=== PATIENT | male | born 1950 | race Caucasian/White ===

== ENCOUNTER → 2019-11-21 13:16 | Outpatient (BNVA) | payer OTHER, SELFPAY | PROVIDERS: Family Provider Internal Medicine; PCP Internal Medicine; Visit Provider Nurse Practitioner | DX: M51.16 Intervertebral disc disorders with radiculopathy, lumbar region (principal); M46.1 Sacroiliitis, not elsewhere classified; M79.651 Pain in right thigh; G62.9 Polyneuropathy, unspecified; Z79.891 Long term (current) use of opiate analgesic | CPT/HCPCS: 99214 ==

== ENCOUNTER → 2020-01-15 10:21 | Outpatient (BNVA) | payer OTHER, SELFPAY | PROVIDERS: Family Provider Internal Medicine; PCP Internal Medicine; Visit Provider Nurse Practitioner | DX: M54.5 Low back pain (principal); M25.512 Pain in left shoulder; Z79.891 Long term (current) use of opiate analgesic | CPT/HCPCS: 99213; 99214 ==

== ENCOUNTER → 2020-04-28 09:17 | Outpatient (BNVA) | payer OTHER, SELFPAY | PROVIDERS: Family Provider Internal Medicine; PCP Family Medicine; Visit Provider Anesthesiology | DX: M51.16 Intervertebral disc disorders with radiculopathy, lumbar region (principal); M46.1 Sacroiliitis, not elsewhere classified; G62.9 Polyneuropathy, unspecified; Z79.891 Long term (current) use of opiate analgesic | CPT/HCPCS: 99213; 99214 ==

== ENCOUNTER → 2020-07-10 12:36 | Outpatient (BNVA) | payer OTHER, SELFPAY | PROVIDERS: Family Provider Internal Medicine; PCP Family Medicine; Visit Provider Anesthesiology | DX: M51.16 Intervertebral disc disorders with radiculopathy, lumbar region (principal); M54.9 Dorsalgia, unspecified; M46.1 Sacroiliitis, not elsewhere classified; G62.9 Polyneuropathy, unspecified; Z79.891 Long term (current) use of opiate analgesic | CPT/HCPCS: 99213; 99214 ==

== ENCOUNTER → 2020-09-18 09:21 | Outpatient (BNVA) | payer OTHER, SELFPAY | PROVIDERS: Family Provider Internal Medicine; PCP Family Medicine; Visit Provider Anesthesiology | DX: M54.9 Dorsalgia, unspecified (principal); M51.16 Intervertebral disc disorders with radiculopathy, lumbar region; G62.9 Polyneuropathy, unspecified; Z79.891 Long term (current) use of opiate analgesic | CPT/HCPCS: 99213; 99214 ==

== ENCOUNTER → 2020-11-03 10:07 | Outpatient (BNVA) | payer OTHER, SELFPAY | PROVIDERS: Family Provider Internal Medicine; PCP Family Medicine; Visit Provider Nurse Practitioner | DX: M51.16 Intervertebral disc disorders with radiculopathy, lumbar region (principal); M54.9 Dorsalgia, unspecified; M46.1 Sacroiliitis, not elsewhere classified; G62.9 Polyneuropathy, unspecified; Z79.891 Long term (current) use of opiate analgesic | CPT/HCPCS: 99213 ==

== ENCOUNTER 2020-11-30 13:56 | Emergency (ER) | payer OTHER, MEDICARE, SELFPAY ==
[2020-11-30 14:39] VITALS: BP 142/81; PULSE 83; RESP 14; TEMP 36.7; O2SAT 99; BMI 41.0
--- NOTE | 2020-11-30 14:54 | CT_ITS ---
WS: [id number] CT HEAD NONCONTRAST HISTORY: stroke like symptoms TECHNIQUE: Contiguous axial imaging performed through the brain in 2.5 mm imaging. Bone and soft tiss ue windows. Sagittal and coronal reformats reviewed. All CT scans at [facility] use at ast one of these dose optimization techniques: automated exposure control; mA and/or kV adjustment pe r patient size (includes targeted exams where dose is matched to clinical indication); or iterative r econstruction. DLP: 902.45 mGy.cm COMPARISON: 04/05/2018 No acute intracranial hemorrhage, midline shift or mass effect. There is mild atrophy and mild chronic microvascular ischemic disease. No prior infarct. Ventricles: Normal size with no hydrocephalus. Paranasal sinuses: As visualized are clear. Mastoid air cells: Increased fluid and soft tissue in the RIGHT mastoid air cells. Similar to the daylin or study. Coalescence of the air cells on the RIGHT. Partial opacification of the RIGHT middle ear is also similar to the prior study. Calvarium and scalp: Skull is intact with no soft tissue edema or swelling. CT/CT head wo con* [id number] IMPRESSION: 1. No acute intracranial hemorrhage or edema. 2. Mild atrophy and mild chronic microvascular ischemic disease is stable. 3. Partial opacification of the RIGHT middle ear and mastoid air cells, unchan ged also.
[2020-11-30 14:59] VITALS: O2SAT 98
--- NOTE | 2020-11-30 15:07 | ECG_ITS ---
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 Measurements Intervals [place] Rate: 78 P: 20 MI: 174 QRS: 64 QRSD: 105 T: 37 QT: 371 QTc: 423 Interpretive Statements SINUS RHYTHM LOW QRS VOLTAGE IN PRECORDIAL LEADS [QRS DEFLECTION < 1.0 mV IN CHEST LEADS] No previous ECG available for comparison Electronically Signed On 11-30-2020 17:05:51 TECHNICAL INSPECTOR by Yemi Singh M.D. [id number]
[2020-11-30 15:40] VITALS: PULSE 76; RESP 16; O2SAT 96
--- NOTE | 2020-11-30 15:43 | ED_ITS ---
HPI - Neuro Symptoms/Deficit General: Chief Complaint: Neuro Symptoms/Deficit Stated Complaint: [facility] referred/ Possible stroke Time Seen by Provider: 11/30/20 15:06 History of Present Illness: HPI Narrative: 70-year-old male comes in 4 days ago he had weakness in his right arm to the point where he could not drink out of a cup he also was unable to swallow he had some weakness on his face. He had some difficulty with balance as well. This all resolved overnight and the following day he was better he remained good through the next several days. He contacted the [place] [facility] this morning to be evaluated and they directed him to the emergency room because of his report of weakness in the right arm 4 days ago. Onset (ago): day(s) (4) Location: dysarthria and right arm History of same: No Severity: mild Quality: weak Relieving factors: none Exacerbating factors: none Context: sudden onset On Anticoagulants: No Associated symptoms: Reports weakness; Deny chest pain, cough, diaphoresis, fevers/chills, headache(s), anorexia, malaise, nausea, seizures, short of breath, syncope, tingling, vertigo or vomiting Treatments Prior to Arrival: none Review of Systems Const: Denies: malaise or diaphoresis ENMT: Denies: throat pain, ear or mastoid pain, nasal discharge or nasal congestion Card: Denies: chest pain or syncope Resp: Denies: dyspnea, productive cough or non-productive cough GI: Denies: nausea or vomiting : Denies: flank pain, dysuria, urinary frequency or urinary urgency Skin/Breast: Denies: rash or pruritus Neuro: Denies: headache(s) or vertigo [facility] ED PFSH: Medical History (Updated 11/30/20 @ 17:47 by Haroon Robles DO) Arthralgia of lumbar spine COVID-19 2019 Encounter for long-term opiate analgesic use History of liver injury RUPTURED LIVER Lumbar disc disease with radiculopathy Neuropathy Opioid contract exists Sacroiliitis Surgical History Hx of arthroscopic knee surgery LEFT 2000 ;RIGHT 02/10 - DENNENY Hx of carpal tunnel repair BILATERAL Hx of parathyroidectomy Hx of tonsillectomy Hx of total knee replacement BILATERALLY Family History Father Cancer LUNG CANCER Mother Diabetes Family/Other Diabetes COUSIN Stroke COUSIN Social History Smoking and tobacco status: former smoker Quit status (tobacco): has quit using tobacco Second hand smoke exposure: No Alcohol intake: never History of recent travel: No NIH stroke score NIHSS: Level Of Consciousness - 1a: 0 Level Of Consciousness Questions - 1b: Both Correct Level Of Consciousness Commands - 1c: Both Correct Best Gaze - 2: Normal Visual Spears - 3: No Visual Loss Facial Palsy - 4: Normal Motor Arm Right - 5: No Drift Motor Arm Left - 5: No Drift Motor Leg Right - 6: No Drift Motor Leg Left - 6: No Drift Limb Ataxia - 7: Absent Sensory - 8: Normal Best Language - 9: No Aphasia Dysarthia - 10: Normal Extinction And Inattention - 11: 0 Score: Total Score: 0 Physical Exam Const: COMMON NORMALS: no acute distress GENERAL APPEARANCE: cooperative and comfortable ORIENTATION/CONSCIOUSNESS: Yes awake, Yes oriented to person, Yes oriented to place and Yes oriented to time HENMT: COMMON NORMALS: normocephalic, atraumatic, hearing grossly normal bilaterally, external ears normal, EAC's normal, TM's normal bilaterally, Normal nasal mucous membranes and turbinates present, moist oral mucous membranes and oropharynx normal HEAD & SCALP: normocephalic and atraumatic NOSE: Normal nasal mucous membranes and turbinates present EXTERNAL EAR: Yes external ears normal EXTERNAL AUDITORY CANAL: EAC's normal TYMPANIC MEMBRANE: TM's normal bilaterally Eye: COMMON NORMALS: Equal, round and reactive pupils present, EOMs intact bilaterally, conjunctivae normal and no scleral icterus CONJUNCTIVA: Yes conjunctivae normal PUPIL: Yes Equal, round and reactive pupils present Neck/C-Spine: COMMON NORMALS: no JVD Resp: COMMON NORMALS: normal respiratory effort, No retractions, No use of accessory muscles and clear to auscultation bilaterally AUSCULTATION: clear to auscultation bilaterally Cardio: COMMON NORMALS: no JVD, regular rate, regular rhythm and No murmurs present (Cardio) RATE: regular rate RHYTHM: regular rhythm GI: COMMON NORMALS: Soft to palpation and No hepatosplenomegaly present AUSCULTATION: Yes normoactive bowel sounds PALPATION: Yes Soft to palpation, No Tenderness to palpation present (GI), No Guarding due to palpation present (GI) and Yes No hepatosplenomegaly present Extremity: COMMON NORMALS: normal to inspection, capillary refill normal, no clubbing, cyanosis or edema, no calf tenderness and no pedal edema Neuro: SENSORIUM/ORIENTATION: Yes oriented to person, Yes oriented to place and Yes oriented to time Skin: COMMON NORMALS: no rashes or lesions noted GENERAL SKIN EXAM: no rashes or lesions noted Course Vital Signs: Vital signs: Vital Signs Temperature 98.1 F 11/30/20 14:39 Pulse Rate 78 11/30/20 18:00 Respiratory Rate 17 11/30/20 18:00 Blood Pressure 127/88 11/30/20 18:00 Pulse Oximetry 97 11/30/20 18:00 MDM - Neuro Symptoms/Deficit MDM Narrative: Medical decision making narrative: No focal neurologic deficits. NIH score is 0. At this point will discharge patient home aspirin 81 mg daily and will set up for MRI Holter monitor carotid and echo. Return if has further problems. Lab Data: Labs: Lab Results 11/30/20 11/30/20 11/30/20 Range/Units 15:32 15:32 15:32 WBC 5.1 (4.0-10.0) 10^3/ uL RBC 4.63 (4.1-5.3) 10^6/u L Hgb 12.7 (11.7-16.6) g/dL Hct 40.1 L (42.0-52.0) % MCV 86.6 (80-94) fL MCH 27.4 L (28.0-34.0) pg MCHC 31.7 (30.0-36.0) g/dL RDW 14.5 (12.1-15.1) % Plt Count 218 (130-400) 10^3/c mm MPV 9.7 (7.4-10.4) fL Neut % (Auto) 60.4 % Lymph % (Auto) 32.0 % [place] % (Auto) 4.9 % Eos % (Auto) 1.9 % Baso % (Auto) 0.6 % Neut # (Auto) 3.10 (1.8-7.7) 10^3/u L Lymph # (Auto) 1.6 (0.8-4.8) 10^3/u L [place] # (Auto) 0.3 (0.2-0.9) 10^3/u L Eos # (Auto) 0.1 (0.0-0.8) 10^3/u L Baso # (Auto) 0.0 (0.0-0.1) 10^3/u L Nucleated RBC % (a uto) 0 % Nucleated RBCs # 0.0 /100WBC PT 12.70 (12.1-14.9) SECO NDS INR 0.93 (0.8-1.2) APTT 29.7 (23.9-36.7) SECO NDS Sodium 140 (136-145) mmol/L Potassium 4.7 (3.5-5.1) mmol/L Chloride 102 (98-107) mmol/L Carbon Dioxide 28 (22-29) mmol/L Anion Gap 14.7 (5-19) BUN 11 (8-23) mg/dL Creatinine 0.7 (0.7-1.2) mg/dL GFR Calculation 112.1 (90-130) mL/min Glucose 187 H (65-115) mg/dL Calculated Osmolal ity 294 (285-295) mOsm/k g Calcium 10.2 (8.5-10.5) mg/dL Total Bilirubin 0.5 (0.15-1.2) mg/dL AST 46 H (0-40) U/L ALT 75 H (0-41) U/L Alkaline Phosphata se 264 H (40-130) IU/L Total Protein 6.6 (6.6-8.7) g/dL Albumin 4.0 (3.5-5.2) g/dL Globulin 2.6 (1.3-4.6) g/dL Urine Color (Yellow) Urine Appearance (CLEAR) Urine pH (5-7) Ur Specific Gravit y (1.005-1.030) Urine Protein (Negative) Urine Glucose (UA) (Normal) Urine Ketones (Negative) Urine Blood (Negative) Urine Nitrate (Negative) Urine Bilirubin (Negative) Urine Urobilinogen (Negative) mg/dL Ur Leukocyte Noreen ase (Negative) Urine Opiates Scre en (Negative) ng/mL Ur Barbiturates Sc reen (Negative) ng/mL Ur Phencyclidine S crn (Negative) ng/mL Ur Amphetamines Sc reen (Negative) ng/mL U Benzodiazepines Scrn (Negative) ng/mL Urine Cocaine Scre en (Negative) ng/mL U Marijuana (THC) Screen (Negative) ng/mL 11/30/20 11/30/20 Range/Units 17:02 17:02 WBC (4.0-10.0) 10^3/ uL RBC (4.1-5.3) 10^6/u L Hgb (11.7-16.6) g/dL Hct (42.0-52.0) % MCV (80-94) fL MCH (28.0-34.0) pg MCHC (30.0-36.0) g/dL RDW (12.1-15.1) % Plt Count (130-400) 10^3/c mm MPV (7.4-10.4) fL Neut % (Auto) % Lymph % (Auto) % [place] % (Auto) % Eos % (Auto) % Baso % (Auto) % Neut # (Auto) (1.8-7.7) 10^3/u L Lymph # (Auto) (0.8-4.8) 10^3/u L [place] # (Auto) (0.2-0.9) 10^3/u L Eos # (Auto) (0.0-0.8) 10^3/u L Baso # (Auto) (0.0-0.1) 10^3/u L Nucleated RBC % (a uto) % Nucleated RBCs # /100WBC PT (12.1-14.9) SECO NDS INR (0.8-1.2) APTT (23.9-36.7) SECO NDS Sodium (136-145) mmol/L Potassium (3.5-5.1) mmol/L Chloride (98-107) mmol/L Carbon Dioxide (22-29) mmol/L Anion Gap (5-19) BUN (8-23) mg/dL Creatinine (0.7-1.2) mg/dL GFR Calculation (90-130) mL/min Glucose (65-115) mg/dL Calculated Osmolal ity (285-295) mOsm/k g Calcium (8.5-10.5) mg/dL Total Bilirubin (0.15-1.2) mg/dL AST (0-40) U/L ALT (0-41) U/L Alkaline Phosphata se (40-130) IU/L Total Protein (6.6-8.7) g/dL Albumin (3.5-5.2) g/dL Globulin (1.3-4.6) g/dL Urine Color Yellow (Yellow) Urine Appearance Clear (CLEAR) Urine pH 6 (5-7) Ur Specific Gravit y 1.015 (1.005-1.030) Urine Protein Neg (Negative) Urine Glucose (UA) Norm (Normal) Urine Ketones Negative (Negative) Urine Blood Neg (Negative) Urine Nitrate Negative (Negative) Urine Bilirubin Neg (Negative) Urine Urobilinogen Norm (Negative) mg/dL Ur Leukocyte Noreen ase Negative (Negative) Urine Opiates Scre en Positive H (Negative) ng/mL Ur Barbiturates Sc reen Negative (Negative) ng/mL Ur Phencyclidine S crn Negative (Negative) ng/mL Ur Amphetamines Sc reen Negative (Negative) ng/mL U Benzodiazepines Scrn Negative (Negative) ng/mL Urine Cocaine Scre en Negative (Negative) ng/mL U Marijuana (THC) Screen Negative (Negative) ng/mL Discharge Plan Discharge Patient Disposition: Home Clinical Impression: Transient cerebral ischemia Condition: Stable Prescriptions: New aspirin 81 mg tablet,delayed release (DR/EC) 81 mg PO DAILY Qty: 30 RF: 0 No Action lisinopril 10 mg tablet 5 mg PO QAM RF: 0 allopurinol 300 mg tablet 300 mg PO QAM RF: 0 aspirin 81 mg tablet,chewable See Rx Instructions .ROUTE .COMPLEX RF: 0 pravastatin 40 mg tablet 20 mg PO QPM RF: 0 metformin 1,000 mg tablet 1,000 mg PO BID RF: 0 glipizide 10 mg tablet 10 mg PO BID RF: 0 tamsulosin 0.4 mg capsule 0.4 mg PO QPM RF: 0 omega 5-fin-kdd-fish oil [Fish Oil] 1,000 mg (120 mg-180 mg) capsule 1 cap PO BID RF: 0 gabapentin 300 mg capsule 900 mg PO TID 30 Days Qty: 270 RF: 1 hydrocodone-acetaminophen 10-325 mg tablet 1 tab PO .5 times a day PRN (Reason: pain) 30 Days Qty: 150 RF: 0 cyclobenzaprine 10 mg tablet 10 mg PO BID PRN (Reason: muscle spasm) 90 Days Qty: 180 RF: 1 diclofenac sodium 1 % Gel 2 g TOPICAL QID PRN (Reason: Pain) RF: 0 Discharge Orders: Discharge ED (Routine); Ordered 11/30/20 Ordered By: Haroon Robles Referrals: Ara Rubio MD [Primary Care Provider] - Discharge Diet: Usual diet Discharge Activity: Increase activity as tolerated Activity Restrictions/Additional Instructions: Case management will call for further testing 24-hour Holter monitor, carotid ultrasound, MRI of the head Coding Level of Care Code ED Control Integration Engineer for Shirleyg Josiah
[2020-11-30 15:44] LABS: Basophils % 0.6 %; Eosinophils # 0.1 10^3/uL (0.0-0.8); Eosinophils % 1.9 %; Hematocrit 40.1 % (42.0-52.0); Hemoglobin 12.7 g/dL (11.7-16.6); Lymphocytes # 1.6 10^3/uL (0.8-4.8); Mean Corpuscular HGB Conc 31.7 g/dL (30.0-36.0); Mean Corpuscular Hemoglobin 27.4 pg (28.0-34.0); Mean Corpuscular Volume 86.6 fL (80-94); Mean Platelet Volume 9.7 fL (7.4-10.4); Monocytes # 0.3 10^3/uL (0.2-0.9); Monocytes % 4.9 %; Neutrophils % 60.4 %; Nucleated Red Blood Cells % 0 %; Platelet Count 218 10^3/cmm (130-400); Red Blood Count 4.63 10^6/uL (4.1-5.3); Red Cell Distribution Width 14.5 % (12.1-15.1); White Blood Count 5.1 10^3/uL (4.0-10.0)
[2020-11-30 16:06] LABS: INR 0.93 (0.8-1.2)
[2020-11-30 16:07] LABS: Partial Thromboplastin Time 29.7 SECONDS (23.9-36.7)
[2020-11-30 16:12] LABS: Alanine Aminotransferase 75 U/L (0-41); Alkaline Phosphatase 264 IU/L (40-130); Anion Gap 14.7 (5-19); Aspartate Amino Transferase 46 U/L (0-40); Blood Urea Nitrogen 11 mg/dL (8-23); Calcium 10.2 mg/dL (8.5-10.5); Carbon Dioxide 28 mmol/L (22-29); Chloride 102 mmol/L (98-107); Globulin 2.6 g/dL (1.3-4.6); Glomerular Filtration Rate 112.1 mL/min (90-130); Glucose 187 mg/dL (65-115); Osmolality Calculated 294 mOsm/kg (285-295); Potassium 4.7 mmol/L (3.5-5.1); Sodium 140 mmol/L (136-145); Total Bilirubin 0.5 mg/dL (0.15-1.2); Total Protein 6.6 g/dL (6.6-8.7)
[2020-11-30 16:45] VITALS: BP 102/70; PULSE 79; RESP 15; O2SAT 91
[2020-11-30 17:07] LABS: Add Urine Microscopic? NO
[2020-11-30 17:19] LABS: Bilirubin Urine Neg (Negative); Blood Urine Neg (Negative); Glucose Urine UA Norm (Normal); Ketones Urine Negative (Negative); Leukocyte Esterase Urine Negative (Negative); Nitrate Urine Negative (Negative); Protein Urine Neg (Negative); Specific Gravity, Urine 1.015 (1.005-1.030); Urine Appearance Clear (CLEAR); Urine Color Yellow (Yellow); Urobilinogen Urine Norm (Negative); pH Urine 6 (5-7)
[2020-11-30 17:28] LABS: Amphetamines Screen Urine Negative (Negative); Barbiturates Screen Urine Negative (Negative); Benzodiazepines Screen Urine Negative (Negative); Cocaine Screen Urine Negative (Negative); Opiate Screen Urine Positive (Negative); PCP Screen Urine Negative (Negative); THC Screen Urine Negative (Negative)
[2020-11-30 18:00] VITALS: BP 127/88; PULSE 78; RESP 17; O2SAT 97
== END 2020-11-30 18:00 | disposition home or self-care (01) ==
PROVIDERS: Emergency Provider Family Medicine; PCP Family Medicine
DX: G45.9 Transient cerebral ischemic attack, unspecified (principal); Z79.82 Long term (current) use of aspirin; Z79.84 Long term (current) use of oral hypoglycemic drugs; Z87.891 Personal history of nicotine dependence; Z79.899 Other long term (current) drug therapy
CPT/HCPCS: 12345; 70450; 80053; 80306; 81003; 85025; 85610; 85730; 93005; 99283; 99284

== ENCOUNTER → 2021-01-19 10:18 | Outpatient (BNVA) | payer OTHER, SELFPAY | PROVIDERS: PCP Family Medicine; Visit Provider Anesthesiology | DX: M51.16 Intervertebral disc disorders with radiculopathy, lumbar region (principal); M54.9 Dorsalgia, unspecified; M46.1 Sacroiliitis, not elsewhere classified; Z79.891 Long term (current) use of opiate analgesic | CPT/HCPCS: 99213 ==

== ENCOUNTER → 2021-03-19 09:12 | Outpatient (BNVA) | payer OTHER, SELFPAY | PROVIDERS: PCP Family Medicine; Visit Provider Anesthesiology | DX: M51.16 Intervertebral disc disorders with radiculopathy, lumbar region (principal); M54.9 Dorsalgia, unspecified; Z79.891 Long term (current) use of opiate analgesic; Z87.891 Personal history of nicotine dependence | CPT/HCPCS: 99213 ==

== ENCOUNTER 2021-04-28 14:33 | Outpatient (CLI) | payer OTHER, SELFPAY ==
--- NOTE | 2021-04-28 15:00 | USCV_ITS ---
Bolivar Martinez Age: 70 Gender: M : 1950 Exam Date: 04/28/2021 14:51 Ordering Phys: Alfreda Manning MD ([email or web address]) Technologist: Ayde Florence Exam Location: [facility] [place] Indication: TIA Risk Factors: Unknown Previous Vascular Surgery: None Right Brachial BP: / Left Brachial BP: / Right Left Velocity (cm/s) Spectral Plaque Velocity (cm/s) Spectral Plaque Syst/Diast Broadening Syst/Diast Broadening 99.20/ 26.35 Prox CCA 116.20/ 38.50 57.30/ 13.40 Mid CCA 117.80/ 42.20 63.60/ 19.70 Distal CCA 94.30 / 23.60 59.60/ 12.00 Prox ICA 87.50 / 19.20 52.30/ 18.00 Mid ICA 58.90 / 21.70 36.70/ 12.80 Distal ICA 65.90 / 20.90 57.50 ECA 111.60 1.04 ICA/CCA 0.74 Antegrade Vertebral Antegrade 30.40/ 12.40 cm/s 22.00/ 6.80 cm/s Tri Subclavian Tri 61.70 57.00 FINDINGS Minimal plaques at the bifurcations bilaterally. Intimal thickening in the common carotid arteries bilaterally. Antegrade flow in the vertebral arteries bilaterally Normal Doppler flow velocities in the external carotid and subclavian arteries bilaterally CONCLUSIONS Minimal plaques at the bifurcations bilaterally, suggesting less than 50% stenosis. Intimal thickening in the common carotid arteries bilaterally. No significant stenosis, based on the above findings. Dr Alfreda Manning MD [facility] (Electronically Signed) Final Date: 29 April 2021 08:46 S
--- NOTE | 2021-04-28 15:45 | USCV_ITS ---
Bolivar Martinez Age: 70 Gender: M : 1950 Exam Date: 04/28/2021 15:11 Ordering Phys: Alfreda Manning MD ([email or web address]) Technologist: Ayde Florence [place] [facility] [place]: TIA BP: / HR: 90 Rhythm: Sinus Technical Quality: Very technically difficult study MEASUREMENTS (Male / Female) Normal Values 2D ECHO LV Diastolic Diameter PLAX 2.1 cm 4.2 - 5.9 / 3.9 - 5.3 cm LV Systolic Diameter PLAX 1.4 cm LV Chamber Size 3.2 cm IVS Diastolic Thickness 1.2 cm 0.6 - 1.0 / 0.6 - 0.9 cm IVS Systolic Thickness 1.1 cm LVPW Diastolic Thickness 1.1 cm 0.6 - 1.0 / 0.6 - 0.9 cm LVPW Systolic Thickness 1.4 cm RV Chamber Size 2.7 cm LVOT Diameter 2.0 cm LV Ejection Fraction 2D Teich 65.3 % LA Diameter 4.1 cm LA Width 3.3 cm LA Height 4.6 cm RA Width 4.1 cm RA Height 4.9 cm M-MODE LV Diastolic Diameter MM 5.6 cm 4.2 - 5.9 / 3.9 - 5.3 cm LV Systolic Diameter MM 3.2 cm LV Ejection Fraction MM Teich 73.0 % IVS Diastolic Thickness MM 1.3 cm 0.6 - 1.0 / 0.6 - 0.9 cm IVS Systolic Thickness MM 2.2 cm LVPW Diastolic Thickness MM 1.1 cm 0.6 - 1.0 / 0.6 - 0.9 cm LVPW Systolic Thickness MM 1.9 cm Aortic Annulus Diameter 3.3 cm LA Ao Ratio MM 1.7 MV E Point Septal Separation 0.5 cm DOPPLER AV Peak Velocity 122.0 cm/s LVOT Peak Velocity 106.0 cm/s AV Area Cont Eq vti 3.5 cm squared AV Area Cont Eq pk 2.8 cm squared MV Area PHT 5.4 cm squared Mitral E to A Ratio 0.9 MV E' Velocity 37.0 cm/s Mitral E to MV E' Ratio 11.1 Mitral E to LV E' Lateral Ratio 11.1 Mitral E to LV E' Septal Ratio 11.1 TR Peak Velocity 100.3 cm/s TR Peak Gradient 4.0 mmHg TR Mean Velocity 61.1 cm/s TR Mean Gradient 1.8 mmHg TR Velocity Time Integral 19.8 cm TV Peak E Velocity 59.0 cm/s Right Atrial Pressure 3.0 mmHg Pulmonary Artery Systolic Pressu 7.0 mmHg PV Peak Velocity 56.0 cm/s RV Acceleration Time 0.2 s RV Ejection Time 0.3 s RV AcT/ET 0.6 FINDINGS Left Ventricle Normal left ventricular size and systolic function, EF 65%. No regional wall motion abnormalities. Technically difficult study because of poor ultrasonic window. Right Ventricle The right ventricle is normal in size and function. Right Atrium The right atrium is normal in size. Left Atrium Normal left atrial size. Mitral Valve No gross abnormalities noted Aortic Valve No gross abnormalities noted Tricuspid Valve Tricuspid valve not well visualized. Pulmonic Valve Pulmonic valve not well visualized. Pericardium Normal pericardium without effusion. Aorta Normal aortic annulus size. CONCLUSIONS Normal left ventricular size and systolic function, EF 65%. No regional wall motion abnormalities. Mitral and aortic valve morphology appears to be within normal limits with no significant stenotic or regurgitant lesions. The right-sided structures could not be visualized well There is no pericardial effusion. Technically difficult study because of poor ultrasonic window. Dr Alfreda Manning MD [facility] (Electronically Signed) Final Date: 29 April 2021 08:52 S
== END 2021-04-28 14:34 | disposition home or self-care (01) ==
LOC: US 14:36
PROVIDERS: PCP Family Medicine; Visit Provider Internal Medicine Cardiovascular Disease
DX: Z86.73 Personal history of transient ischemic attack (TIA), and cerebral infarction without residual deficits (principal); I65.23 Occlusion and stenosis of bilateral carotid arteries
CPT/HCPCS: 93306; 93880

== ENCOUNTER → 2021-06-04 10:03 | Outpatient (BNVA) | payer OTHER, SELFPAY | PROVIDERS: PCP Family Medicine; Visit Provider Anesthesiology | DX: M51.16 Intervertebral disc disorders with radiculopathy, lumbar region (principal); Z79.891 Long term (current) use of opiate analgesic | CPT/HCPCS: 99213 ==

== ENCOUNTER → 2021-06-24 09:05 | Outpatient (BNVA) | payer OTHER, SELFPAY | PROVIDERS: PCP Family Medicine; Referring Provider Family Medicine; Visit Provider Specialist | DX: M19.012 Primary osteoarthritis, left shoulder (principal); M25.512 Pain in left shoulder | CPT/HCPCS: 73030 ==

== ENCOUNTER → 2021-07-28 09:16 | Outpatient (BNVA) | payer OTHER, SELFPAY | PROVIDERS: PCP Family Medicine; Visit Provider Nurse Practitioner | DX: M51.16 Intervertebral disc disorders with radiculopathy, lumbar region (principal); M25.512 Pain in left shoulder; G62.9 Polyneuropathy, unspecified; M46.1 Sacroiliitis, not elsewhere classified; Z79.891 Long term (current) use of opiate analgesic | CPT/HCPCS: 99212; 99213 ==

== ENCOUNTER → 2021-09-24 09:11 | Outpatient (BNVA) | payer OTHER, SELFPAY | PROVIDERS: PCP Family Medicine; Visit Provider Anesthesiology | DX: M51.16 Intervertebral disc disorders with radiculopathy, lumbar region (principal); M46.1 Sacroiliitis, not elsewhere classified; G62.9 Polyneuropathy, unspecified; Z79.891 Long term (current) use of opiate analgesic | CPT/HCPCS: 99213 ==

== ENCOUNTER 2021-12-19 17:20 | Emergency (ER) | payer OTHER, MEDICARE, SELFPAY ==
--- NOTE | 2021-12-19 17:22 | CTR_ITS ---
PROCEDURE INFORMATION: Exam: CT Head Without Contrast Exam date and time: 12/19/2021 5:22 PM Age: 71 years old Clinical indication: Weakness, extremity; Left; Additional info: Left sided weakness TECHNIQUE: Imaging protocol: Computed tomography of the head without contrast. Sagittal and coronal reformatted images were created and reviewed. Radiation optimization: All CT scans at this facility use at least one of these dose optimization techniques: automated exposure control; mA and/or kV adjustment per patient size (includes targeted exams where dose is matched to clinical indication); or iterative reconstruction. COMPARISON: CT head wo con* [id number] 11/30/2020 2:51 PM RADIATION DOSE METRICS: Total DLP (mGy-cm): 734.43 FINDINGS: Brain: No acute intracranial hemorrhage. No acute infarct. No intra-axial or extra-axial masses. Mcwilliams-white matter differentiation is preserved. No cerebral edema. No extra-axial fluid collections. No midline shift. No evidence for Chiari 1 malformation. Stable mild atrophy of the brain parenchyma. Cerebral ventricles: No hydrocephalus. Paranasal sinuses: Visualized paranasal sinuses are clear. Mastoid air cells: Small amount of fluid in the right and left mastoid air cells. Orbital cavity: Globes and lenses, extraocular muscles, and optic nerves are intact bilaterally. No acute intraorbital abnormality. Vasculature: Atherosclerotic changes in the visualized arteries. Bones/joints: Mild right nasal septal deviation. Soft tissues: The extracranial soft tissues are unremarkable. CT/CT head wo con* [id number] IMPRESSION: 1. No acute abnormality of the brain. 2. Stable mild atrophy of the brain parenchyma. 3. Small amount of fluid in the right and left mastoid air cells. 4. Incidental/nonacute findings are listed in the report.
--- NOTE | 2021-12-19 17:30 | CTR_ITS ---
PROCEDURE INFORMATION: Exam: CT Angiography Head With Contrast, Arteriography Exam date and time: 12/19/2021 5:30 PM Age: 71 years old Clinical indication: Weakness; Additional info: Left sided weakness TECHNIQUE: Imaging protocol: Computed tomography angiography of the head with contrast. Exam focused on the arteries. 3D rendering (Not supervised by radiologist): MIP and/or 3D reconstructed images were created by the technologist. Radiation optimization: All CT scans at this facility use at least one of these dose optimization techniques: automated exposure control; mA and/or kV adjustment per patient size (includes targeted exams where dose is matched to clinical indication); or iterative reconstruction. Contrast material: VISI 320; Contrast volume: 95 ml; Contrast route: INTRAVENOUS (IV); COMPARISON: CT head wo con* [id number] 12/19/2021 5:25 PM RADIATION DOSE METRICS: Total DLP (mGy-cm): 2637.1 FINDINGS: ANTERIOR CIRCULATION: Right internal carotid artery: Mild calcified plaque at the cavernous segment. No occlusion, thrombosis, stenosis, extravasation, dissection, or aneurysm. Right middle cerebral artery: Unremarkable. No occlusion, thrombosis, stenosis, extravasation, dissection, or aneurysm. Right anterior cerebral artery: Unremarkable. No occlusion, thrombosis, stenosis, extravasation, dissection, or aneurysm. Anterior communicating artery: The anterior communicating artery is unremarkable. Left internal carotid artery: Mild calcified plaque at the cavernous segment. No occlusion, thrombosis, stenosis, extravasation, dissection, or aneurysm. Left middle cerebral artery: Unremarkable. No occlusion, thrombosis, stenosis, extravasation, dissection, or aneurysm. Left anterior cerebral artery: Unremarkable. No occlusion, thrombosis, stenosis, extravasation, dissection, or aneurysm. POSTERIOR CIRCULATION: Right vertebral artery: Mild noncalcified plaque in the intracranial right vertebral artery with up to 30% stenosis. No occlusion, thrombosis, extravasation, dissection, or aneurysm. Left vertebral artery: Unremarkable. No occlusion, thrombosis, stenosis, extravasation, dissection, or aneurysm. Basilar artery: Unremarkable. No occlusion, thrombosis, stenosis, extravasation, dissection, or aneurysm. Right posterior cerebral artery: Unremarkable. No occlusion, thrombosis, stenosis, dissection, or aneurysm. Left posterior cerebral artery: Unremarkable. No occlusion, thrombosis, stenosis, extravasation, dissection, or aneurysm. Right posterior communicating artery: The right posterior communicating artery is unremarkable. Left posterior communicating artery: The left posterior communicating artery is not visualized. The left posterior communicating artery may be congenitally absent, or may be too small for the resolution capabilities of this study. Brain: No definite mass, mass effect, or midline shift. Cerebral ventricles: No ventriculomegaly. Orbital cavity: Globes and lenses, extraocular muscles, and optic nerves are intact bilaterally. No acute intraorbital abnormality. Bones/joints: Unremarkable. No acute fracture. Mastoid air cells: Small amount of fluid in the right and left mastoid air cells. Soft tissues: No acute abnormality of the extracranial soft tissues. Paranasal sinuses: Paranasal sinuses are clear. Nasal cavity: Mild right nasal septal deviation. PROCEDURE INFORMATION: Exam: CT Angiography Neck With Contrast Exam date and time: 12/19/2021 5:30 PM Age: 71 years old Clinical indication: Weakness; Additional info: Left sided weakness TECHNIQUE: Imaging protocol: Computed tomography angiography of the neck with contrast. 3D rendering (Not supervised by radiologist): MIP and/or 3D reconstructed images were created by the technologist. Radiation optimization: All CT scans at this facility use at least one of these dose optimization techniques: automated exposure control; mA and/or kV adjustment per patient size (includes targeted exams where dose is matched to clinical indication); or iterative reconstruction. Contrast material: VISI 320; Contrast volume: 95 ml; Contrast route: INTRAVENOUS (IV); COMPARISON: No relevant prior studies available. RADIATION DOSE METRICS: Total DLP (mGy-cm): 2637.1 FINDINGS: Right common carotid artery: Mild calcified and noncalcified plaque at the carotid bulb. No occlusion, thrombosis, stenosis, extravasation, dissection, or aneurysm. Right internal carotid artery: Unremarkable. No occlusion, thrombosis, stenosis, extravasation, dissection, or aneurysm. Right external carotid artery: Unremarkable. No occlusion, thrombosis, stenosis, extravasation, dissection, or aneurysm. Left common carotid artery: Unremarkable. No occlusion, thrombosis, stenosis, extravasation, dissection, or aneurysm. Left internal carotid artery: Unremarkable. No occlusion, thrombosis, stenosis, extravasation, dissection, or aneurysm. Left external carotid artery: Unremarkable. No occlusion, thrombosis, stenosis, extravasation, dissection, or aneurysm. Right vertebral artery: Unremarkable. No occlusion, thrombosis, stenosis, extravasation, dissection, or aneurysm. Left vertebral artery: Unremarkable. No occlusion, thrombosis, stenosis, extravasation, dissection, or aneurysm. Brachiocephalic artery: Unremarkable. No occlusion, thrombosis, stenosis, extravasation, dissection, or aneurysm. Subclavian arteries: Focal mild calcified plaque at the origin of the right subclavian artery. No occlusion, thrombosis, stenosis, extravasation, dissection, or aneurysm. Aorta: Unremarkable as visualized. No occlusion, thrombosis, stenosis, extravasation, dissection, or aneurysm. Lymph nodes: Calcified mediastinal lymph nodes. Soft tissues: No soft tissue swelling. No radiopaque foreign body. Bones/joints: Multilevel degenerative changes of varying severity in the visualized spine. Lungs: Dependent atelectasis in the lungs bilaterally. Mild paraseptal and centrilobular emphysematous changes in the visualized lungs. CT/CT angio headneck* [id number] IMPRESSION: 1. Mild atherosclerotic disease. Up to 30% stenosis in the intracranial right vertebral artery. No occlusion, thrombosis, extravasation, dissection, or aneurysm. 2. The left posterior communicating artery is not visualized. The left posterior communicating artery may be congenitally absent, or may be too small for the resolution capabilities of this study. 3. Small amount of fluid in the right and left mastoid air cells. 4. Incidental/nonacute findings are listed in the report. IMPRESSION: 1. Mild atherosclerotic disease. No occlusion, thrombosis, stenosis, extravasation, dissection, or aneurysm. 2. Incidental/nonacute findings are listed in the report. REFERENCES: NASCET CRITERIA. The degree of internal carotid artery stenosis is based on NASCET criteria. Normal is no stenosis. Mild is less than 50% stenosis. Moderate is 50-69% stenosis. Severe is 70% to 99% stenosis. Total occlusion is no detectable patent lumen.
--- NOTE | 2021-12-19 17:30 | XRR_ITS ---
PROCEDURE INFORMATION: Exam: XR Chest Exam date and time: 12/19/2021 5:30 PM Age: 71 years old Clinical indication: Other: Weakness; Prior surgery; Surgery date: 6+ months; Surgery type: Thyroid; Additional info: CVA TECHNIQUE: Imaging protocol: XR of the chest. Views: 1 view. COMPARISON: CR Chest 1 [place] [id number] 06/29/2018 5:19 PM FINDINGS: Lungs: Decreased inspiration. Patchy atelectasis in the left lingula. Pleural spaces: No pleural effusion. No pneumothorax. Heart/Mediastinum: Cardiac silhouette is moderately enlarged. Mediastinal contours are unremarkable. Bones/joints: Unremarkable for age. XR/XR chest 1V portable [id number] IMPRESSION: 1. Decreased inspiration. Patchy atelectasis in the left lingula. 2. Incidental/nonacute findings are listed in the report.
--- NOTE | 2021-12-19 17:30 | ECG_ITS ---
[facility] Test Date: 2021-12-19 Pat Name: Bolivar Martinez Department: Room: Gender: Male Weight Trainer: : 1950 Requested By: Arsh Can Order Number: [id number] Celine MD: Yemi Singh M.D. Measurements Intervals [place] Rate: 102 P: 45 HI: 140 QRS: 74 QRSD: 109 T: 42 QT: 339 QTc: 442 Interpretive Statements SINUS TACHYCARDIA LOW QRS VOLTAGE IN PRECORDIAL LEADS [QRS DEFLECTION < 1.0 mV IN CHEST LEADS] Compared to ECG 11/30/2020 15:12:01 Sinus rhythm no longer present Electronically Signed On 12-20-2021 12:13:12 TOY DEPARTMENT MANAGER by Yemi Singh M.D. [id number]
[2021-12-19] MEDS: iodixanol 320 mg/mL 100mL Btl IV (17:33)
[2021-12-19 17:41] LABS: Glucose Point of Care 256 mg/dL (70-110)
[2021-12-19 17:45] VITALS: BMI 47.6
[2021-12-19 17:52] LABS: Basophils % 0.2 %; Hematocrit 38.2 % (42.0-52.0); Hemoglobin 12.5 g/dL (11.7-16.6); Lymphocytes # 0.8 10^3/uL (0.8-4.8); Lymphocytes % 9.3 %; Mean Corpuscular HGB Conc 32.7 g/dL (30.0-36.0); Mean Corpuscular Hemoglobin 27.7 pg (28.0-34.0); Mean Corpuscular Volume 84.7 fl (80-94); Mean Platelet Volume 9.9 fL (7.4-10.4); Monocytes # 0.2 10^3/uL (0.2-0.9); Monocytes % 2.6 %; Neutrophils # 7.69 10^3/uL (1.8-7.7); Neutrophils % 87.7 %; Nucleated Red Blood Cells % 0 %; Platelet Count 235 10^3/cmm (130-400); Red Blood Count 4.51 10^6/uL (4.1-5.3); Red Cell Distribution Width 14.1 % (12.1-15.1); White Blood Count 8.8 10^3/uL (4.0-10.0)
[2021-12-19 17:57] VITALS: BP 114/71; PULSE 101; RESP 16; O2SAT 94
--- NOTE | 2021-12-19 17:58 | ED_ITS ---
HPI - Neuro Symptoms/Deficit General: Chief Complaint: Neuro Symptoms/Deficit Stated Complaint: LEFT SIDED WEAKNESS; SLURRED SPEECH Time Seen by Provider: 12/19/21 17:29 Source: patient Mode of arrival: EMS Limitations: no limitations History of Present Illness: This patient presents to the emergency department via EMS because he concerned he might be having stroke symptoms. He states that he did not feel well yesterday with general malaise and general body aches and today he has felt like he could not hold things and felt weak. He states that his symptoms involved holding things with either left or right hand. He denies any headache. He denies any injury. He denies any difficulty with speech. He lives with family members. He thinks his symptoms worsened approximately 4:00 this afternoon[address] In route EMS thought they noted some changes in his neurologic status but on arrival here he is at his baseline. History of same: Yes Quality: weak Context: gradual onset Associated symptoms: Deny chest pain, headache(s), nausea, vertigo or vomiting Review of Systems Const: Denies: fever(s), chills, body aches, change in appetite or change in weight Eyes: Denies: change in vision ENMT: Denies: throat pain or odynophagia Card: Denies: chest pain, palpitations or irregular heart rhythm Resp: Denies: dyspnea, productive cough or non-productive cough GI: Denies: abdominal pain, nausea or vomiting : Denies: flank pain, urinary urgency or urinary hesitancy Musc: Reports: joint pain and muscle weakness; Denies: neck pain or back pain Skin/Breast: Denies: rash or pruritus Neuro: Reports: weakness in extremities and difficulty walking; Denies: headache(s), numbness in extremities, sensory changes, lack of coordination, dizziness, vertigo, Slurred speech present, difficulty communicating thoughts or seizure-like activity Psych: Denies: anxiety or depression Endo: Denies: polyuria or polydipsia [place]/Lymph: Denies: easy bruising PFSH ED PFSH: Medical History Arthralgia of lumbar spine COVID-19 2019 Encounter for long-term opiate analgesic use History of liver injury RUPTURED LIVER Lumbar disc disease with radiculopathy Neuropathy Opioid contract exists Sacroiliitis Surgical History Hx of arthroscopic knee surgery LEFT 2000 ;RIGHT 02/10 - [place] Hx of carpal tunnel repair BILATERAL Hx of parathyroidectomy Hx of tonsillectomy Hx of total knee replacement BILATERALLY Family History Father Cancer LUNG CANCER Lung disease Mother Diabetes Family/Other Diabetes COUSIN Stroke COUSIN Suicide Denies family history of CAD (coronary artery disease) Clotting disorder Dementia Chronic kidney disease (CKD) Anesthesia complication Bleeding disorder Social History Smoking and tobacco status: former smoker Quit status (tobacco): has quit using tobacco Second hand smoke exposure: No Alcohol intake: never History of recent travel: No NIH stroke score NIHSS: Level Of Consciousness - 1a: 0 Level Of Consciousness Questions - 1b: Both Correct Level Of Consciousness Commands - 1c: Both Correct Best Gaze - 2: Normal Visual Spears - 3: No Visual Loss Facial Palsy - 4: Normal Motor Arm Right - 5: No Drift Motor Arm Left - 5: No Drift (shoulder arthritis limits movement at shoulder) Motor Leg Right - 6: No Drift Motor Leg Left - 6: No Drift Limb Ataxia - 7: Absent (shoulder arthritis limts movement at that joint) Sensory - 8: Normal Best Language - 9: No Aphasia Dysarthia - 10: Normal Extinction And Inattention - 11: 0 Score: Total Score: 0 Physical Exam Narrative: EXAM NARRATIVE: The patient communicates in a normal voice. He does not appear to be any acute distress. Speech is fluent. Const: COMMON NORMALS: no acute distress and alert NUTRITIONAL APPEARANCE: obese ORIENTATION/CONSCIOUSNESS: Yes oriented to person, Yes oriented to place and Yes oriented to time HENMT: COMMON NORMALS: normocephalic, atraumatic, Normal nasal mucous membranes and turbinates present and moist oral mucous membranes HEAD & SCALP: normocephalic and atraumatic FACE & SINUS: face symmetric NOSE: Normal nasal mucous membranes and turbinates present Eye: COMMON NORMALS: Equal, round and reactive pupils present, EOMs intact bilaterally and conjunctivae normal CONJUNCTIVA: Yes conjunctivae normal PUPIL: Yes Equal, round and reactive pupils present Neck/C-Spine: COMMON NORMALS: no JVD Cardio: COMMON NORMALS: no JVD, regular rate, regular rhythm and No murmurs present (Cardio) RATE: regular rate RHYTHM: regular rhythm GI: COMMON NORMALS: Normal to inspection, nondistended, normoactive bowel sounds present, Soft to palpation and non-tender PALPATION: Yes Soft to palpation Back/Pelvis: COMMON NORMALS: thoracic and lumbar spine normal to inspection, no thoracic nor lumbar tenderness and straight leg raise negative bilaterally Extremity: COMMON NORMALS: normal to inspection, full ROM, capillary refill normal, no joint enlargement and no calf tenderness NARRATIVE EXTREMITY EXAM: Has limitations at the left shoulder joint to external rotation and abduction past approximately 45 degrees. Neuro: SENSORIUM/ORIENTATION: Yes alert, Yes oriented to person, Yes oriented to place and Yes oriented to time CRANIAL NERVES: Yes CN normal except as noted COORDINATION/BALANCE: [id number] test normal and sicw-to-akic test normal SPEECH: speech normal MOTOR EXAM: 5/5 motor strength present throughout, Pronator motor function not present and no tremor noted COORDINATION: [id number] test normal and [id number] test normal Psych: COMMON NORMALS: mental status grossly normal and Normal thought process present THOUGHT PROCESS: Normal thought process present Course Reevaluation(s): Reevaluation #1: Patient ambulating about the room and displays no signs of any neurologic deficits etc. I reviewed current findings and the reassuring nature regarding his CT CTA head and neck. However I noticed that his total bilirubin is slightly elevated and his transaminases are elevated from prior laboratories available in the system. He denies alcohol use. He states that he does not have any history of gallbladder problems etc. He does have a very remote history of having a liver lack from a accident but this was many years ago. Because of his transaminitis and elevation in bilirubin going proceed with a gallbladder ultra sound to ensure that there is no occult cholelithiasis. He denies abdominal pain and his abdominal examination is unremarkable. Time: 19:45 Reevaluation #2: Patient jerardo clinically stable without any focal neurologic findings. His gallbladder ultrasound is reassuring and there is no evidence of cholelithiasis or biliary duct dilatation etc. This point he has had transaminitis with a nonobstructive hyperbilirubinemia likely acute phase reactant but he will need to be closely followed up. He is stable for discharge at this time. Time: 22:23 Vital Signs: Vital signs: Vital Signs Pulse Rate 90 12/19/21 20:01 Respiratory Rate 15 02/20/22 20:01 Blood Pressure 95/57 12/19/21 20:01 Pulse Oximetry 95 12/19/21 20:01 MDM - Neuro Symptoms/Deficit Medical Decision Making This patient with a prior history of TIA presented to the emergency department with bilateral symptoms certainly not suggestive of a central nervous system etiology however because of his history of a stroke work-up was entertained. His findings this evening are all reassuring with no evidence of acute stroke or large vessel occlusion etc. He did have an occult transaminitis with hyperbilirubinemia which is proven to be likely related to his diabetes and/or a possibly acute phase reactant as his gallbladder ultrasound is reassuring. He does have a history of liver trauma many years ago but unlikely that that is a contributing factor to his transaminitis. No alcohol use etc. acknowledged by the patient. At this point time the patient is at his baseline ambulating without difficulty hungry and desires to be discharged in the emergency department. He is being discharged to continue on his usual medications with close follow-up over the next 2 weeks for repeat liver functions and bilirubin. Lab Data I reviewed the patient's lab results. : 12/19/21 17:45 12/19/21 17:[address] 12/19/21 17:22 IMPRESSION: 1. No acute abnormality of the brain. 2. Stable mild atrophy of the brain parenchyma. 3. Small amount of fluid in the right and left mastoid air cells. 4. Incidental/nonacute findings are listed in the report. Chest X-Ray 12/19/21 17:30 IMPRESSION: 1. Decreased inspiration. Patchy atelectasis in the left lingula. 2. Incidental/nonacute findings are listed in the report. Head/Neck CTA 12/19/21 17:30 IMPRESSION: 1. Mild atherosclerotic disease. Up to 30% stenosis in the intracranial right vertebral artery. No occlusion, thrombosis, extravasation, dissection, or aneurysm. 2. The left posterior communicating artery is not visualized. The left posterior communicating artery may be congenitally absent, or may be too small for the resolution capabilities of this study. 3. Small amount of fluid in the right and left mastoid air cells. 4. Incidental/nonacute findings are listed in the report. IMPRESSION: 1. Mild atherosclerotic disease. No occlusion, thrombosis, stenosis, extravasation, dissection, or aneurysm. 2. Incidental/nonacute findings are listed in the report. REFERENCES: NASCET CRITERIA. The degree of internal carotid artery stenosis is based on NASCET criteria. Normal is no stenosis. Mild is less than 50% stenosis. Moderate is 50-69% stenosis. Severe is 70% to 99% stenosis. Total occlusion is no detectable patent lumen. Gallbladder Ultrasound 12/19/21 19:40 IMPRESSION: 1. Negative for cholelithiasis or cholecystitis. 2. Technologist report questioned a possible liver cyst which is measured at 3.1 cm, CT could better characterize this as clinically indicated. No cyst is seen on prior CT scan. Laboratory Results WBC 8.8 10^3/uL (4.0-10.0) 12/19/21 17:45 RBC 4.51 10^6/uL (4.1-5.3) 12/19/21 17:45 Hgb 12.5 g/dL (11.7-16.6) 12/19/21 17:45 Hct 38.2 % (42.0-52.0) L 12/19/21 17:45 MCV 84.7 fl (80-94) 12/19/21 17:45 MCH 27.7 pg (28.0-34.0) L 12/19/21 17:45 MCHC 32.7 g/dL (30.0-36.0) 12/19/21 17:45 RDW 14.1 % (12.1-15.1) 12/19/21 17:45 Plt Count 235 10^3/cmm (130-400) 12/19/21 17:45 MPV 9.9 fL (7.4-10.4) 12/19/21 17:45 Neut % (Auto) 87.7 % 12/19/21 17:45 Lymph % (Auto) 9.3 % 12/19/21 17:45 Saunders % (Auto) 2.6 % 12/19/21 17:45 Eos % (Auto) 0.0 % 12/19/21 17:45 Baso % (Auto) 0.2 % 12/19/21 17:45 Neut # (Auto) 7.69 10^3/uL (1.8-7.7) 12/19/21 17:45 Lymph # (Auto) 0.8 10^3/uL (0.8-4.8) 12/19/21 17:45 Saunders # (Auto) 0.2 10^3/uL (0.2-0.9) 12/19/21 17:45 Eos # (Auto) 0.0 10^3/uL (0.0-0.8) 12/19/21 17:45 Baso # (Auto) 0.0 10^3/uL (0.0-0.1) 12/19/21 17:45 Nucleated RBC % (auto) 0 % 12/19/21 17:45 Nucleated RBCs # 0.0 /100WBC 12/19/21 17:45 PT 14.40 SECONDS (12.1-14.9) 12/19/21 17:45 INR 1.09 (0.8-1.2) 12/19/21 17:45 APTT 31.1 SECONDS (23.9-36.7) 12/19/21 17:45 Sodium 132 mmol/L (136-145) L 12/19/21 17:45 Potassium 4.8 mmol/L (3.5-5.1) 12/19/21 17:45 Chloride 99 mmol/L (98-107) 12/19/21 17:45 Carbon Dioxide 21 mmol/L (22-29) L 12/19/21 17:45 Anion Gap 16.8 (5-19) 12/19/21 17:45 BUN 19 mg/dL (8-23) 12/19/21 17:45 Creatinine 1.0 mg/dL (0.7-1.2) 12/19/21 17:45 GFR Calculation 74.1 mL/min (90-130) L 12/19/21 17:45 Glucose 240 mg/dL (65-115) H 12/19/21 17:45 POC Glucose 256 mg/dL (70-110) H 12/19/21 17:38 Calculated Osmolality 284 mOsm/kg (285-295) L 12/19/21 17:45 Calcium 10.0 mg/dL (8.5-10.5) 12/19/21 17:45 Total Bilirubin 2.2 mg/dL (0.15-1.2) H 12/19/21 17:45 AST 165 U/L (0-40) H 12/19/21 17:45 ALT 145 U/L (0-41) H 12/19/21 17:45 Alkaline Phosphatase 259 IU/L (40-130) H 12/19/21 17:45 Total Protein 6.6 g/dL (6.6-8.7) 12/19/21 17:45 Albumin 3.9 g/dL (3.5-5.2) 12/19/21 17:45 Globulin 2.7 g/dL (1.3-4.6) 12/19/21 17:45 Discharge Plan Discharge Patient Disposition: Home Clinical Impression: Type 2 diabetes mellitus, Transaminitis, Weakness generalized Condition: Stable Prescriptions: No Action allopurinol 300 mg tablet 300 mg PO QAM 0RF aspirin 81 mg tablet,chewable See Rx Instructions .ROUTE .COMPLEX 0RF Rx Instructions: 81mg po every other month see pharmacy comment pravastatin 40 mg tablet 20 mg PO QPM 0RF metformin 1,000 mg tablet 1,000 mg PO BID 0RF glipizide 10 mg tablet 10 mg PO BID 0RF tamsulosin 0.4 mg capsule 0.4 mg PO QPM 0RF omega 5-yof-ffq-fish oil [Fish Oil] 1,000 mg (120 mg-180 mg) capsule 1 cap PO BID 0RF gabapentin 300 mg capsule 900 mg PO TID 30 Days Qty: 270 1RF hydrocodone-acetaminophen 10-325 mg tablet 1 tab PO .5 times a day 30 Days Qty: 150 0RF Rx Instructions: fill on or after 10/04/21 (takes) 2 tabs po qam,1 tab @14:00, 2 tabs po @22:00 hydrocodone-acetaminophen 10-325 mg tablet 1 tab PO .5 times a day PRN (Reason: pain) 30 Days Qty: 150 0RF Rx Instructions: Fill on or after 11/03/2021 (takes) 2 tabs po qam,1 tab @14:00, 2 tabs po @22:00 lisinopril 10 mg tablet 10 mg PO .one-half once day 0RF cyclobenzaprine 10 mg tablet 10 mg PO BID PRN (Reason: muscle spasm) 90 Days Qty: 180 0RF metoprolol tartrate 25 mg tablet 12.5 mg PO BID Qty: 90 3RF aspirin 81 mg tablet,delayed release (DR/EC) 81 mg PO DAILY Qty: 30 0RF Discharge Orders: Discharge ED (Routine); Ordered 12/19/21 Ordered By: Arsh Can Referrals: Ara Rubio MD [Primary Care Provider] - 7-10 days Discharge Diet: Usual diet Discharge Activity: Resume usual activity Patient Instructions: Opioid Safety Activity Restrictions/Additional Instructions: Continue usual medications. Monitor your blood pressure and blood sugar. Follow-up with your doctor in the next 10 to 14 days for recheck of your blood work. If you have developing any worsening or new symptoms or any other concerns return to this or the nearest emergency department. Coding Level of Care Code ED Print Manager for Shirleyg Fwd Exam Comprehensive
[2021-12-19 18:07] LABS: INR 1.09 (0.8-1.2)
[2021-12-19 18:08] LABS: Partial Thromboplastin Time 31.1 SECONDS (23.9-36.7)
[2021-12-19 18:13] LABS: Alanine Aminotransferase 145 U/L (0-41); Albumin Level 3.9 g/dL (3.5-5.2); Alkaline Phosphatase 259 IU/L (40-130); Anion Gap 16.8 (5-19); Aspartate Amino Transferase 165 U/L (0-40); Blood Urea Nitrogen 19 mg/dL (8-23); Carbon Dioxide 21 mmol/L (22-29); Chloride 99 mmol/L (98-107); Globulin 2.7 g/dL (1.3-4.6); Glomerular Filtration Rate 74.1 mL/min (90-130); Glucose 240 mg/dL (65-115); Osmolality Calculated 284 mOsm/kg (285-295); Potassium 4.8 mmol/L (3.5-5.1); Sodium 132 mmol/L (136-145); Total Bilirubin 2.2 mg/dL (0.15-1.2); Total Protein 6.6 g/dL (6.6-8.7)
[2021-12-19 18:39] VITALS: BP 90/68; PULSE 103; RESP 16; O2SAT 92
--- NOTE | 2021-12-19 19:40 | USR_ITS ---
PROCEDURE INFORMATION: Exam: US Abdomen, Limited; Right Upper Quadrant Exam date and time: 12/19/2021 7:40 PM Age: 71 years old Clinical indication: Abdominal pain; Acute; Additional info: Elevation in bili and transaminases TECHNIQUE: Imaging protocol: US abdomen. Real time ultrasound with image documentation. Limited exam focused on the right upper quadrant. COMPARISON: CT Abdomen/Pelvis Renal [id number] 06/29/2018 5:48 PM FINDINGS: Liver: Technologist report questioned a possible liver cyst which is measured at 3.1 cm, CT could better characterize this as clinically indicated. No cyst is seen on prior CT scan. Gallbladder: Normal. No gallstones. There is no gallbladder wall thickening. Common bile duct: Normal. No stones. No dilation. Pancreas: Visualized pancreas is unremarkable. Right kidney: Normal. No mass. No hydronephrosis. US/US gall bladder [id number] IMPRESSION: 1. Negative for cholelithiasis or cholecystitis. 2. Technologist report questioned a possible liver cyst which is measured at 3.1 cm, CT could better characterize this as clinically indicated. No cyst is seen on prior CT scan.
[2021-12-19 20:01] VITALS: BP 95/57; PULSE 90; RESP 15; O2SAT 95
[2021-12-19 22:00] VITALS: BP 117/69; PULSE 96; RESP 13; O2SAT 93
[2021-12-19 22:49] VITALS: BP 85/65; PULSE 97; RESP 19; O2SAT 98
[2021-12-19 22:50] LABS: Add Urine Microscopic? NO; Charge for UA Resulting for Rev
[2021-12-19 22:55] LABS: Bilirubin Urine Neg (Negative); Blood Urine Neg (Negative); Glucose Urine UA 4+ (Normal); Ketones Urine Negative (Negative); Leukocyte Esterase Urine Negative (Negative); Nitrate Urine Negative (Negative); Protein Urine Neg (Negative); Specific Gravity, Urine 1.005 (1.005-1.030); Urine Appearance Clear (CLEAR); Urine Color Yellow (Yellow); Urobilinogen Urine Norm (Negative); pH Urine 5 (5-7)
[2021-12-19 23:02] LABS: Amphetamines Screen Urine Negative (Negative); Barbiturates Screen Urine Negative (Negative); Benzodiazepines Screen Urine Negative (Negative); Cocaine Screen Urine Negative (Negative); Opiate Screen Urine Positive (Negative); PCP Screen Urine Negative (Negative); THC Screen Urine Negative (Negative)
== END 2021-12-19 22:40 | disposition home or self-care (01) ==
PROVIDERS: Emergency Provider Emergency Medicine; PCP Family Medicine
DX: R53.1 Weakness (principal); R74.01 Elevation of levels of liver transaminase levels; E11.9 Type 2 diabetes mellitus without complications; Z79.82 Long term (current) use of aspirin; Z79.84 Long term (current) use of oral hypoglycemic drugs; Z87.891 Personal history of nicotine dependence
CPT/HCPCS: 36416; 70450; 70496; 70498; 71045; 76705; 80053; 80306; 81003; 82962; 85025; 85610; 85730; 93005; 99284; Q9967

== ENCOUNTER → 2022-05-12 07:57 | Outpatient (BNVA) | payer OTHER, SELFPAY | PROVIDERS: PCP Family Medicine; Visit Provider Specialist | DX: M19.012 Primary osteoarthritis, left shoulder (principal); Z71.89 Other specified counseling | CPT/HCPCS: 20610; 99024; 99213 ==

== ENCOUNTER 2022-06-29 09:16 | Outpatient (CLI) | payer OTHER, SELFPAY ==
--- NOTE | 2022-06-29 09:31 | USCV_ITS ---
Bolivar Martinez Age: 71 Gender: M : 1950 Exam Date: 06/29/2022 09:44 Ordering Phys: Ara Rubio MD Technologist: CANDIDA Exam Location: [facility] [place] Indication: AAA SCREENING HISTORY: Diameter (cm) AP x Transverse x Length Velocity (cm/s) Waveform Prox Aorta: 2.46 x 2.26 x 51.90 Mid Aorta: 2.13 x 2.13 x 65.60 Distal Aorta: 2.01 x 2.00 x Right Iliac Prox: x x Left Iliac Prox: x x Stent Prox Landing x x Aneurysmal Sac Max x x Lt Lat Sac Dim Rt Lat Sac Dim Stent Dist Landing x x Right Iliac Stent x x Left Iliac Stent x x Right Renal Art Left Renal Art FINDINGS: Normal abdominal aortic dimensions Normal aortic Doppler velocities Technically difficult study because of poor ultrasonic window The iliac arteries could not be visualized CONCLUSIONS No evidence of aneurysm in the abdominal aorta Technically difficult study Dr Alfreda Manning MD [facility] (Electronically Signed) Final Date: 29 June 2022 16:47 S
== END 2022-06-29 09:17 | disposition home or self-care (01) ==
PROVIDERS: PCP Family Medicine; Visit Provider Family Medicine
DX: Z13.6 Encounter for screening for cardiovascular disorders (principal)
CPT/HCPCS: 93978

== ENCOUNTER 2022-07-07 14:16 | Outpatient (CLI) | payer OTHER, SELFPAY ==
--- NOTE | 2022-07-07 | CT_ITS ---
WS: [id number] Patient: Juan. CT LUMBAR SPINE, noncontrast. HISTORY: Vertebral genic low back pain, chronic. TECHNIQUE: Contiguous 2.5 mm axial imaging are performed. Sagittal and coronal reformats are submitte d and reviewed. All CT scans at [facility] use at least one of these dose optimization techni ques: automated exposure control; mA and/or kV adjustment per patient size (includes targeted exams w here dose is matched to clinical indication); or iterative reconstruction. IV contrast: None DLP: 2580.95 mGy-cm. COMPARISON: None available. L2 retrolisthesis by 3 mm. L5 anterolisthesis by 3 mm. Disc spaces are moderately narrowed throughout . Vacuum disc phenomenon at L3-4, L4-5 and L5-S1. No compression fractures. L1-2: No fractures. No stenosis. L2-3: Mild annular disc bulging with mild ligamentum flavum and facet arthritis. No stenosis. L3-4: Moderate annular disc bulging encroaching upon the ventral thecal sac. Moderate facet joint art hritis. Air in the facet joints with hypertrophic bone formation and ligamentum flavum hypertrophy. M oderate central, bilateral foraminal stenosis. L4-5: Moderate annular disc bulging with ligamentum flavum and mild facet arthritis. Air in the facet joints and hypertrophic osteophytes. Disc protrusion and osteophyte RIGHT foramen abuts the RIGHT L4 nerve root. There is mild encroachment upon the subarticular recesses bilaterally. L5-S1: Diffuse annular disc bulging with osteophytic ridging. Facet joint osteophytes encroach into t he subarticular recesses bilaterally. Air in the facet joints. There is additional RIGHT foraminal di sc protrusion contacting the RIGHT L5 nerve root. There is disc and osteophyte contacting the S1 nerv e roots bilaterally in the subarticular recesses. Moderate to severe bilateral subarticular recess an d foraminal stenosis. Greatest stenosis involves the RIGHT foramen. Partial fusion with bony sclerosis along the RIGHT SI joint. CT/CT lumbar spine wo con* [id number] IMPRESSION: 1. Vacuum disc phenomenon and moderate narrowing at L3-4, L4-5 and L5-S1. 2. Moderate to severe bilateral subarticular recess and foraminal stenosis at L5-S1. RIGHT foraminal disc protrusion contacts the RIGHT L5 nerve root. Bilate ral facet osteophytes encroach into the subarticular recesses causing significa nt encroachment upon the S1 nerve roots. 3. Moderate central and bilateral foraminal stenosis at L3-4. 4. Disc protrusion or osteophyte RIGHT foramen of L4-5. There is contact on t he RIGHT L4 nerve root and mild bilateral subarticular recess narrowing. 5. Minimal retrolisthesis of L2 and anterolisthesis of L5.
== END 2022-07-07 14:17 | disposition home or self-care (01) ==
PROVIDERS: PCP Family Medicine; Visit Provider Nurse Practitioner
DX: M51.26 Other intervertebral disc displacement, lumbar region (principal); M48.061 Spinal stenosis, lumbar region without neurogenic claudication
CPT/HCPCS: 72131

== ENCOUNTER → 2022-08-18 08:36 | Outpatient (BNVA) | payer OTHER, SELFPAY | PROVIDERS: PCP Family Medicine; Visit Provider Specialist | DX: M19.012 Primary osteoarthritis, left shoulder (principal) | CPT/HCPCS: 20610; J1100; J2795; J3301 ==

== ENCOUNTER 2022-08-18 10:17 | Emergency (ER) | payer OTHER, MEDICARE, SELFPAY ==
[2022-08-18 10:17] VITALS: BP 135/43; PULSE 76; RESP 16; TEMP 36.6; O2SAT 96; BMI 45.1
--- NOTE | 2022-08-18 10:19 | ECG_ITS ---
[facility] Test Date: 2022-08-18 Pat Name: Bolivar Martinez Department: Room: Gender: Male Head Charger: : 1950 Requested By: Haroon Clmeent Order Number: [id number] Celine MD: Yemi Singh M.D. Measurements Intervals [place] Rate: 73 P: 31 OK: 178 QRS: 55 QRSD: 105 T: 40 QT: 376 QTc: 414 Interpretive Statements SINUS RHYTHM LOW QRS VOLTAGE IN PRECORDIAL LEADS [QRS DEFLECTION < 1.0 mV IN CHEST LEADS] Compared to ECG 12/19/2021 17:47:23 Sinus tachycardia no longer present Electronically Signed On 08-18-2022 11:06:44 CDT by Yemi Singh M.D. [id number]
--- NOTE | 2022-08-18 10:19 | XRR_ITS ---
PROCEDURE INFORMATION: Exam: XR Chest Exam date and time: 08/18/2022 10:47 AM Age: 72 years old Clinical indication: Pain and injury or trauma; Fall; Blunt trauma (contusions or hematomas); Chest wall pain; Injury date: 08/17/22; Injury details: PT fell yesterday and landed on his lt knee and with his lt hand fisted up under his chest. PT has lt knee pain and pain on the left side of chest; Additional info: Chest pain TECHNIQUE: Imaging protocol: Radiologic exam of the chest. Views: 1 view. COMPARISON: CR XR chest 1V portable [id number] 12/19/2021 5:57 PM FINDINGS: Lungs: There is patchy fibrosis in the left base. No acute pulmonary infiltrates. Pleural spaces: Unremarkable. No pleural effusion. No pneumothorax. Heart/Mediastinum: Unremarkable. No cardiomegaly. Bones/joints: Unremarkable. XR/XR chest 1V portable [id number] IMPRESSION: No acute abnormality.
--- NOTE | 2022-08-18 10:36 | XRR_ITS ---
PROCEDURE INFORMATION: Exam: XR Left Knee Exam date and time: 08/18/2022 10:49 AM Age: 72 years old Clinical indication: Pain and injury or trauma; Fall; Blunt trauma; Injury date: 08/17/22; Injury details: PT fell yesterday and landed on his lt knee and with his lt hand fisted up under his chest. PT has lt knee pain and pain on the left side of chest; Prior surgery; Surgery date: 6+ months; Surgery type: Bilateral knee TECHNIQUE: Imaging protocol: Radiologic exam of the Left knee. Views: 3 views. COMPARISON: No relevant prior studies available. FINDINGS: Bones/joints: A total left knee prosthesis projects in satisfactory position. No fracture, dislocation or other acute bone or joint abnormality. Soft tissues: Normal. XR/XR knee LT 3V* [id number] IMPRESSION: No acute abnormality.
--- NOTE | 2022-08-18 10:38 | ED_ITS ---
HPI - Fall General: Chief Complaint: Fall Stated Complaint: chest wall pain Time Seen by Provider: 08/18/22 10:18 Source: patient Mode of arrival: ambulatory History of Present Illness: 72-year-old male presents to the emergency room with complaints of a fall yesterday. If stumbled and fell he had his hand in front of his chest and landed on a closed fist. He not strike his head he did not lose consciousness he has some discomfort where he landed on his fist yesterday. Pain with deep inspiration no hemoptysis. No fever sweats or chills. Denies abdominal pain. He is also complaining of some mild left knee pain he has been ambulatory in the knee since the fall. MD complaint: fall Onset (ago): day(s) (1) Fall from: standing Place fall occurred: home Loss of consciousness: None Prolonged down time: no Context: tripped/slipped Location of injury: chest Location of injury - extremities: Left: knee Associated symptoms-after fall: Denies abdominal pain, chest pain, confusion, difficulty walking, headache(s), hematuria, lightheadedness, neck pain, numbness, short of breath, vertigo or weakness Review of Systems Const: Denies: fever(s), chills, body aches, change in appetite, fatigue or malaise ENMT: Denies: throat pain, ear or mastoid pain, nasal discharge or nasal congestion Card: Denies: chest pain, palpitations, irregular heart rhythm, edema or lightheadedness Resp: Denies: dyspnea, productive cough or non-productive cough GI: Denies: abdominal pain : Denies: difficulty urinating, dysuria or hematuria Musc: Denies: neck pain Skin/Breast: Denies: rash or pruritus Neuro: Denies: headache(s), difficulty walking, vertigo or confusion PFS ED PFSH: Medical History Arthralgia of lumbar spine COVID-19 2019 Encounter for long-term opiate analgesic use History of liver injury RUPTURED LIVER Lumbar disc disease with radiculopathy Neuropathy Opioid contract exists Sacroiliitis Surgical History Hx of arthroscopic knee surgery LEFT 2000 ;RIGHT 02/10 - DENNENY Hx of carpal tunnel repair BILATERAL Hx of parathyroidectomy Hx of tonsillectomy Hx of total knee replacement BILATERALLY Family History Father Cancer LUNG CANCER Lung disease Mother Diabetes Family/Other Diabetes COUSIN Stroke COUSIN Suicide Denies family history of CAD (coronary artery disease) Clotting disorder Dementia Chronic kidney disease (CKD) Anesthesia complication Bleeding disorder Social History Smoking and tobacco status: former smoker Quit status (tobacco): has quit using tobacco Second hand smoke exposure: No Alcohol intake: never History of recent travel: No Physical Exam Const: GENERAL APPEARANCE: cooperative and comfortable ORIENTATION/CONSCIOUSNESS: Yes awake, Yes oriented to person, Yes oriented to place and Yes oriented to time HENMT: COMMON NORMALS: normocephalic, atraumatic and hearing grossly normal bilaterally HEAD & SCALP: normocephalic and atraumatic Resp: COMMON NORMALS: normal respiratory effort, No retractions, No use of accessory muscles and clear to auscultation bilaterally AUSCULTATION: clear to auscultation bilaterally Cardio: COMMON NORMALS: regular rate, regular rhythm and No murmurs present (Cardio) RATE: regular rate RHYTHM: regular rhythm GI: COMMON NORMALS: Soft to palpation and No hepatosplenomegaly present AUSCULTATION: Yes normoactive bowel sounds PALPATION: Yes Soft to palpation, No Tenderness to palpation present (GI), No Guarding due to palpation present (GI) and Yes No hepatosplenomegaly present Extremity: COMMON NORMALS: normal to inspection, capillary refill normal, no clubbing, cyanosis or edema, no calf tenderness and no pedal edema Neuro: SENSORIUM/ORIENTATION: Yes oriented to person, Yes oriented to place and Yes oriented to time Skin: COMMON NORMALS: no rashes or lesions noted GENERAL SKIN EXAM: no rashes or lesions noted Course Vital Signs: Vital signs: Vital Signs Temperature 98 F 08/18/22 10:17 Pulse Rate 77 08/18/22 13:12 Respiratory Rate 23 H 08/18/22 13:12 Blood Pressure 133/82 08/18/22 13:12 Pulse Oximetry 96 08/18/22 13:12 Oxygen Delivery Me thod Nasal Cannula 08/18/22 10:17 MDM - Fall Medical Decision Making Labs and imaging reviewed no acute findings discharged home anti-inflammatories ice or heat as needed follow-up with primary care return if is further problems. Medical Records I reviewed the patient's medical records. Lab Data I reviewed the patient's lab results. : 08/18/22 11:07 08/18/22 11:52 Radiology Impressions Chest X-Ray 08/18/22 10:19 IMPRESSION: No acute abnormality. Knee X-Ray 08/18/22 10:36 IMPRESSION: No acute abnormality. Laboratory Results WBC 6.1 10^3/uL (4.0-10.0) 08/18/22 11:07 RBC 4.30 10^6/uL (4.1-5.3) 08/18/22 11:07 Hgb 12.3 g/dL (11.7-16.6) 08/18/22 11:07 Hct 38.1 % (42.0-52.0) L 08/18/22 11:07 MCV 88.6 fl (80-94) 08/18/22 11:07 MCH 28.6 pg (28.0-34.0) 08/18/22 11:07 MCHC 32.3 g/dL (30.0-36.0) 08/18/22 11:07 RDW 13.9 % (12.1-15.1) 08/18/22 11:07 Plt Count 172 10^3/cmm (130-400) 08/18/22 11:07 MPV 10.0 fL (7.4-10.4) 08/18/22 11:07 Neut % (Auto) 71.4 % 08/18/22 11:07 Lymph % (Auto) 22.8 % 08/18/22 11:07 Rabun % (Auto) 3.9 % 08/18/22 11:07 Eos % (Auto) 1.3 % 08/18/22 11:07 Baso % (Auto) 0.3 % 08/18/22 11:07 Neut # (Auto) 4.34 10^3/uL (1.8-7.7) 08/18/22 11:07 Lymph # (Auto) 1.4 10^3/uL (0.8-4.8) 08/18/22 11:07 Rabun # (Auto) 0.2 10^3/uL (0.2-0.9) 08/18/22 11:07 Eos # (Auto) 0.1 10^3/uL (0.0-0.8) 08/18/22 11:07 Baso # (Auto) 0.0 10^3/uL (0.0-0.1) 08/18/22 11:07 Nucleated RBC % (auto) 0 % 08/18/22 11:07 Nucleated RBCs # 0.0 /100WBC 08/18/22 11:07 Sodium 138 mmol/L (136-145) 08/18/22 11:52 Potassium 4.7 mmol/L (3.5-5.1) 08/18/22 11:52 Chloride 104 mmol/L (98-107) 08/18/22 11:52 Carbon Dioxide 24 mmol/L (22-29) 08/18/22 11:52 Anion Gap 14.7 (5-19) 08/18/22 11:52 BUN 7 mg/dL (8-23) L 08/18/22 11:52 Creatinine 0.7 mg/dL (0.7-1.2) 08/18/22 11:52 GFR Calculation 111.5 mL/min (90-130) 08/18/22 11:52 Glucose 125 mg/dL (65-115) H 08/18/22 11:52 Calculated Osmolality 285 mOsm/kg (285-295) 08/18/22 11:52 Calcium 10.2 mg/dL (8.5-10.5) 08/18/22 11:52 Total Bilirubin 0.3 mg/dL (0.15-1.2) 08/18/22 11:52 AST 22 U/L (0-40) 08/18/22 11:52 ALT 24 U/L (0-41) 08/18/22 11:52 Alkaline Phosphatase 131 U/L (40-130) H 08/18/22 11:52 Troponin T Baseline 8 ng/L (0-15) 08/18/22 11:52 Troponin T 120 Minute Cancelled 08/18/22 13:22 Delta Troponin T Cancelled 08/18/22 13:22 Total Protein 7.0 g/dL (6.6-8.7) 08/18/22 11:52 Albumin 4.1 g/dL (3.5-5.2) 08/18/22 11:52 Globulin 2.9 g/dL (1.3-4.6) 08/18/22 11:52 Discharge Plan Discharge Patient Disposition: Home Clinical Impression: Fall, Pain, chest wall Condition: Stable Prescriptions: No Action allopurinol 300 mg tablet 300 mg PO QAM aspirin 81 mg tablet,chewable See Rx Instructions .ROUTE .COMPLEX Rx Instructions: 81mg po every other month see pharmacy comment pravastatin 40 mg tablet 20 mg PO QPM metformin 1,000 mg tablet 1,000 mg PO BID glipizide 10 mg tablet 10 mg PO BID tamsulosin 0.4 mg capsule 0.4 mg PO QPM omega 2-kne-yap-fish oil [Fish Oil] 1,000 mg (120 mg-180 mg) capsule 1 cap PO BID gabapentin 300 mg capsule 900 mg PO TID 30 Days Qty: 270 1RF hydrocodone-acetaminophen 10-325 mg tablet 1 tab PO .5 times a day 30 Days Qty: 150 0RF Rx Instructions: fill on or after 10/04/21 (takes) 2 tabs po qam,1 tab @14:00, 2 tabs po @22:00 hydrocodone-acetaminophen 10-325 mg tablet 1 tab PO .5 times a day PRN (Reason: pain) 30 Days Qty: 150 0RF Rx Instructions: Fill on or after 11/03/2021 (takes) 2 tabs po qam,1 tab @14:00, 2 tabs po @22:00 lisinopril 10 mg tablet 10 mg PO .one-half once day cyclobenzaprine 10 mg tablet 10 mg PO BID PRN (Reason: muscle spasm) 90 Days Qty: 180 0RF metoprolol tartrate 25 mg tablet 12.5 mg PO BID Qty: 90 3RF aspirin 81 mg tablet,delayed release (DR/EC) 81 mg PO DAILY Qty: 30 0RF Discharge Orders: Discharge ED (Routine); Ordered 08/18/22 Ordered By: Haroon Robles Referrals: Ara Rubio MD [Primary Care Provider] - Discharge Diet: Usual diet Discharge Activity: Resume usual activity Patient Instructions: Opioid Safety, Pain Management Activity Restrictions/Additional Instructions: X-rays do not show any acute fractures or abnormalities on your chest. Discomfort is likely due to the fall. Use the previous Malcolm prescribed pain medications along with [id number] Aleve or ibuprofen as needed. Coding Level of Care Code ED Medical Anthropology Director for Rafael Fwjuliette Exam Detailed
[2022-08-18 11:00] VITALS: BP 124/77; PULSE 76; RESP 14; O2SAT 95
[2022-08-18 11:16] LABS: Basophils % 0.3 %; Eosinophils # 0.1 10^3/uL (0.0-0.8); Eosinophils % 1.3 %; Hematocrit 38.1 % (42.0-52.0); Hemoglobin 12.3 g/dL (11.7-16.6); Lymphocytes # 1.4 10^3/uL (0.8-4.8); Lymphocytes % 22.8 %; Mean Corpuscular HGB Conc 32.3 g/dL (30.0-36.0); Mean Corpuscular Hemoglobin 28.6 pg (28.0-34.0); Mean Corpuscular Volume 88.6 fl (80-94); Monocytes # 0.2 10^3/uL (0.2-0.9); Monocytes % 3.9 %; Neutrophils # 4.34 10^3/uL (1.8-7.7); Neutrophils % 71.4 %; Nucleated Red Blood Cells % 0 %; Platelet Count 172 10^3/cmm (130-400); Red Cell Distribution Width 13.9 % (12.1-15.1); White Blood Count 6.1 10^3/uL (4.0-10.0)
[2022-08-18 12:27] LABS: Troponin(5th) Baseline 8 ng/L (0-15)
--- NOTE | 2022-08-18 12:27 | ECG_ITS ---
[facility] Test Date: 2022-08-18 Pat Name: Bolivar Martinez Department: Room: Gender: Male Shroud Line Tier: : 1950 Requested By: Haroon Clement Order Number: [id number] Celine MD: Yemi Singh M.D. Measurements Intervals [place] Rate: 72 P: 37 ME: 178 QRS: 2 QRSD: 109 T: 19 QT: 376 QTc: 411 Interpretive Statements SINUS RHYTHM LOW QRS VOLTAGE IN PRECORDIAL LEADS [QRS DEFLECTION < 1.0 mV IN CHEST LEADS] Compared to ECG 08/18/2022 10:55:40 No significant changes Electronically Signed On 08-18-2022 14:07:06 CDT by Yemi Singh M.D. [id number]
[2022-08-18 12:30] VITALS: BP 129/82; PULSE 76; RESP 13; O2SAT 95
[2022-08-18 12:30] LABS: Alanine Aminotransferase 24 U/L (0-41); Albumin Level 4.1 g/dL (3.5-5.2); Alkaline Phosphatase 131 U/L (40-130); Anion Gap 14.7 (5-19); Aspartate Amino Transferase 22 U/L (0-40); Blood Urea Nitrogen 7 mg/dL (8-23); Calcium 10.2 mg/dL (8.5-10.5); Carbon Dioxide 24 mmol/L (22-29); Chloride 104 mmol/L (98-107); Creatinine Clr Calc Pharmacy 108.2599; Globulin 2.9 g/dL (1.3-4.6); Glomerular Filtration Rate 111.5 mL/min (90-130); Glucose 125 mg/dL (65-115); Osmolality Calculated 285 mOsm/kg (285-295); Potassium 4.7 mmol/L (3.5-5.1); Sodium 138 mmol/L (136-145); Total Bilirubin 0.3 mg/dL (0.15-1.2)
[2022-08-18 13:12] VITALS: BP 133/82; PULSE 77; RESP 23; O2SAT 96
== END 2022-08-18 13:14 | disposition home or self-care (01) ==
PROVIDERS: Emergency Provider Family Medicine; PCP Family Medicine
DX: R07.89 Other chest pain (principal); Z79.84 Long term (current) use of oral hypoglycemic drugs; Z79.82 Long term (current) use of aspirin; Z87.891 Personal history of nicotine dependence
CPT/HCPCS: 36415; 71045; 73562; 80053; 84484; 85025; 93005; 99213; 99285

== ENCOUNTER → 2022-12-01 07:46 | Outpatient (BNVA) | payer OTHER, SELFPAY | PROVIDERS: PCP Family Medicine; Visit Provider Specialist | DX: M19.012 Primary osteoarthritis, left shoulder (principal) | CPT/HCPCS: 20610; 99213; J1100; J2795; J3301 ==

== ENCOUNTER → 2023-02-23 08:57 | Outpatient (BNVA) | payer OTHER, SELFPAY | PROVIDERS: PCP Family Medicine; Visit Provider Specialist | DX: M19.012 Primary osteoarthritis, left shoulder (principal); Z71.89 Other specified counseling | CPT/HCPCS: 20610; 73030; 99213; J1100; J2795; J3301 ==

== ENCOUNTER → 2023-05-25 13:05 | Outpatient (BNVA) | payer OTHER, SELFPAY | PROVIDERS: PCP Family Medicine; Visit Provider Specialist | DX: M19.012 Primary osteoarthritis, left shoulder; Z71.89 Other specified counseling | CPT/HCPCS: 20610; J1100; J2795; J3301 ==

== ENCOUNTER 2023-08-13 16:07 | Emergency (ER) | payer OTHER, SELFPAY ==
[2023-08-13 16:08] VITALS: BP 129/78; PULSE 89; RESP 18; TEMP 36.4; O2SAT 97; BMI 46.7
[2023-08-13 16:20] VITALS: BP 142/75; PULSE 90; PULSE 92; RESP 18; O2SAT 98
--- NOTE | 2023-08-13 17:59 | W.ED.EXTPRO ---
HPI - Extremity Problem General: Chief complaint: Extremity Problem,Nontraumatic Stated complaint: right leg pain, weakness Time Seen by Provider: 08/13/23 17:43 Source: patient Mode of arrival: wheelchair Limitations: no limitations History of Present Illness: Patient presents to the emergency department today for evaluation treatment of acute on chronic low back pain with right-sided sciatica. Patient has well-documented lumbar issues including radiculopathy for which she has been seen and evaluated over the years by pain management. He states he is currently seeing Dr. Arteaga with pain management and receives [place] 10, gabapentin, and muscle relaxers. He states that about 10 or 11 days ago he had acute worsening of his chronic pain with no known reason. He denies any falls or injuries. No change or complaints of urinary symptoms. [facility] and they did provide him some shots which provided him relief for only a couple of hours. Review of Systems General: Reports: 10 or more systems reviewed and unremarkable except in HPI and below PFSH ED PFSH: Medical History Arthralgia of lumbar spine COVID-19 2019 Encounter for long-term opiate analgesic use History of liver injury RUPTURED LIVER Lumbar disc disease with radiculopathy Neuropathy Opioid contract exists Sacroiliitis Surgical History Hx of arthroscopic knee surgery LEFT 2000 ;RIGHT 02/10 - DENNENY Hx of carpal tunnel repair BILATERAL Hx of parathyroidectomy Hx of tonsillectomy Hx of total knee replacement BILATERALLY Family History Father Cancer LUNG CANCER Lung disease Mother Diabetes Family/Other Diabetes COUSIN Stroke COUSIN Suicide Denies family history of CAD (coronary artery disease) Clotting disorder Dementia Chronic kidney disease (CKD) Anesthesia complication Bleeding disorder Social History Smoking and tobacco/nicotine status: former use of tobacco/nicotine Quit status (tobacco/nicotine): has quit using Second hand smoke exposure: No Alcohol intake: never Substance/Drug Use: never Physical Exam Const: COMMON NORMALS: patient oriented x3 and alert OTHER: Patient is pleasant and social but obviously uncomfortable. HENMT: COMMON NORMALS: normocephalic, atraumatic and hearing grossly normal bilaterally HEAD & SCALP: normocephalic and atraumatic Eye: COMMON NORMALS: Equal, round and reactive pupils present, EOMs intact bilaterally and conjunctivae normal CONJUNCTIVA: Yes conjunctivae normal PUPIL: Yes Equal, round and reactive pupils present Neck/C-Spine: COMMON NORMALS: full ROM and no JVD Lymph: LYMPHATIC: no lymphadenopathy noted Resp: COMMON NORMALS: normal respiratory effort, No retractions and No use of accessory muscles Cardio: COMMON NORMALS: no JVD and regular rate RATE: regular rate Back/Pelvis: OTHER: Generalized right lower back and right upper buttock pain. Extremity: NARRATIVE EXTREMITY EXAM: Patient is constantly moving in the bed. He demonstrates ability to flex and extend at the knees and hips bilaterally with ability to roll side to side in the bed. He is ambulatory and weightbearing from the bed to the wheelchair but notes acute worsening of pain with weightbearing. Neuro: COMMON NORMALS: patient oriented x3 SENSORIUM/ORIENTATION: Yes alert Psych: COMMON NORMALS: mental status grossly normal, Normal thought process present, cooperative and normal affect THOUGHT PROCESS: Normal thought process present Skin: COMMON NORMALS: no rashes or lesions noted and turgor normal GENERAL SKIN EXAM: no rashes or lesions noted and turgor normal Course Vital Signs: Vital signs: Vital Signs Temperature 97.6 F 08/13/23 16:08 Pulse Rate 88 08/13/23 19:42 Respiratory Rate 18 08/13/23 19:42 Blood Pressure 108/57 08/13/23 19:42 Pulse Oximetry 97 08/13/23 19:42 Oxygen Delivery Me thod Room Air 08/13/23 19:16 MDM - Extremity (Nontraumatic) Medical Decision Making Patient has well-documented chronic lumbar radiculopathy and lumbar issues. Patient is followed by pain management and sees orthopedics for other issues but, states he has never seen a spine doctor. He states they have never talked him about other options other than oral medications. I did offer to place a referral to spine on his behalf and he did wish to proceed. Explained that there is not much other oral medication that can be provided of the medication he already has but we did give a short course of medicine through the emergency department to try and help with his acute worsening of his pain. Patient has family here to drive him home. I did provide him a Medrol Dosepak for the next several days to use in conjunction to his chronic meds but requested he call his pain management doctor first thing in the morning to request increase in pain medication in the interim between now and follow-up with spine. Went over neurological changes for which patient needs to be seen and reevaluated should they occur in the urinary or lower extremity regions. Patient verbalized understanding and agreement to treatment plan. Differential Diagnosis Unlikely herpes zoster, gout, cellulitis, superficial thrombophlebitis, lower extremity edema or deep vein thrombosis of lower extremity No radiology studies performed this visit Discharge Plan Discharge Patient Disposition: Home Clinical Impression: Lumbar disc disease with radiculopathy, Sacroiliitis Condition: Stable Prescriptions: New methylprednisolone 4 mg tablets,dose pack See Rx Instructions PO .COMPLEX Qty: 21 0RF Rx Instructions: orally per package directions No Action allopurinol 300 mg tablet 300 mg PO QAM pravastatin 40 mg tablet 20 mg PO QPM metformin 1,000 mg tablet 1,000 mg PO BID glipizide 10 mg tablet 10 mg PO BID tamsulosin 0.4 mg capsule 0.4 mg PO QPM omega 8-msr-yfc-fish oil [Fish Oil] 1,000 mg (120 mg-180 mg) capsule 1 cap PO BID gabapentin 300 mg capsule 900 mg PO TID 30 Days Qty: 270 1RF hydrocodone-acetaminophen 10-325 mg tablet 1 tab PO .5 times a day 30 Days Qty: 150 0RF Rx Instructions: fill on or after 10/04/21 (takes) 2 tabs po qam,1 tab @14:00, 2 tabs po @22:00 hydrocodone-acetaminophen 10-325 mg tablet 1 tab PO .5 times a day PRN (Reason: pain) 30 Days Qty: 150 0RF Rx Instructions: Fill on or after 11/03/2021 (takes) 2 tabs po qam,1 tab @14:00, 2 tabs po @22:00 lisinopril 10 mg tablet 10 mg PO .one-half once day cyclobenzaprine 10 mg tablet 10 mg PO BID PRN (Reason: muscle spasm) 90 Days Qty: 180 0RF aspirin 81 mg tablet,delayed release (DR/EC) 81 mg PO DAILY Qty: 30 0RF Discharge Orders: Discharge ED (Routine); Ordered 08/13/23 Ordered By: Virgie Henriquez Referrals: Ara Rubio MD [Primary Care Provider] - Discharge Diet: Usual diet Discharge Activity: Increase activity as tolerated Patient Instructions: Lumbar Radiculopathy (ED), Sacroiliitis (ED), Degenerative Disc Disease (ED) Activity Restrictions/Additional Instructions: Unfortunately, it appears that the chronic maintenance of your low back issues including sacroiliitis and lumbar radiculopathy seem to have stopped responding to your current treatment plans. As it does not appear you have ever been followed by a high school library media specialist, I placed a referral on your behalf to be evaluated further to discuss other possible interventions for your pain. We provided you various medications here in the emergency department however, they are still very similar to those you have at home so I encourage you to continue taking your prescribed regimens there. Continue to apply heat to the back and your topical pain patches. They should notify you about a follow-up appointment in the next couple of days but, you may also wish to call your pain management provider first thing in the morning to make them aware of the discomfort you have been having now for almost 2 weeks as they may be able to provide you something slightly different and stronger for the short-term interim before seeing the high school library media specialist. Coding Level of Care Code ED Carbon Setter for Rafael Rahman
[2023-08-13 19:04] VITALS: RESP 20; O2SAT 99
[2023-08-13] MEDS: orphenadrine 30 mg/mL Inj 2 mL 60 MG IVP (19:04)
[2023-08-13] MEDS: dexamethasone 10 mg/mL INJ IVP (19:04)
[2023-08-13] MEDS: morphine 4 mg/mL SDV 1 mL IVP (19:04)
[2023-08-13] MEDS: metoclopramide 5 mg/mL SDV 2 mL 10 MG IVP (19:04)
[2023-08-13 19:16] VITALS: BP 105/63; PULSE 86; RESP 16; O2SAT 98
[2023-08-13 19:42] VITALS: BP 108/57; PULSE 88; RESP 18; O2SAT 97
--- NOTE | 2023-08-14 11:29 | PC.SOCIAL ---
Ortho Referral Referral to clinic at this time. Clinic to contact patient with appt date/time.
== END 2023-08-13 19:43 | disposition home or self-care (01) ==
PROVIDERS: Emergency Provider Physician Assistant; PCP Family Medicine
DX: M51.16 Intervertebral disc disorders with radiculopathy, lumbar region (principal); M46.1 Sacroiliitis, not elsewhere classified; Z79.02 Long term (current) use of antithrombotics/antiplatelets; Z79.82 Long term (current) use of aspirin; Z87.891 Personal history of nicotine dependence
CPT/HCPCS: 96374; 96375; 99284; J1100; J2270; J2360; J2765

== ENCOUNTER → 2023-09-07 14:50 | Outpatient (BNVA) | payer OTHER, SELFPAY | PROVIDERS: PCP Family Medicine; Visit Provider Orthopaedic Surgery | DX: M51.16 Intervertebral disc disorders with radiculopathy, lumbar region (principal) | CPT/HCPCS: 72110; 99204 ==

== ENCOUNTER 2023-10-10 08:52 | Outpatient (CLI) | payer OTHER, SELFPAY ==
--- NOTE | 2023-10-10 09:30 | MR_ITS ---
WS: [id number] MRI LUMBAR SPINE NONCONTRAST HISTORY: Pain radiating down RIGHT leg. Chronic bilateral leg numbness. COMPARISON: None available. TECHNIQUE: Sagittal and axial multisequence imaging is submitted. Normal lumbar alignment with no compression fractures or marrow edema. Mild disc desiccation throughout the lumbar spine. Mild cortical irregularity along the superior endp late of L5. Benign hemangioma at L3. Area of increased T2 signal on the STIR sequence involving the L 2 LEFT pedicle. Abnormality measures 7.8 mm in diameter. Conus terminates normally at L1-2 disc level. L1-L2: Mild annular disc bulging and facet arthritis. L2-L3: Very mild annular disc bulging and facet arthritis. Mild encroachment upon the subarticular re cesses. L3-L4: Mild annular disc bulging with marked ligamentum flavum and facet arthritis. Bilateral foramin al disc protrusions slightly greater on the LEFT. Combination of findings resulting in moderate centr al, bilateral subarticular recess and foraminal stenosis. There is disc contacting the L3 and L4 nerv e roots bilaterally. L4-L5: Mild annular disc bulging with osteophytic ridging and marked facet and ligamentum flavum arth ritis. Encroachment upon the central canal. Mild central, bilateral subarticular recess and LEFT fora men stenosis. Moderate RIGHT foraminal stenosis. There may be a small disc protrusion in the RIGHT fo ramen also. L5-S1: Mild annular disc bulging. Bilateral moderate foraminal stenosis, RIGHT greater than LEFT. No retroperitoneal abnormality identified. IMPRESSION: 1. L3-4: Bilateral foraminal disc protrusions, greater on the LEFT. Moderate central, bilateral subar ticular recess and foraminal stenosis. Disc contacts the L3 and L4 nerve roots bilaterally. 2. L4-5: Moderate RIGHT foraminal stenosis. Suspect there is probably a focal disc protrusion in the RIGHT foramen. Additional mild central, bilateral subarticular and LEFT foramen stenosis. 3. L5-S1: Moderate bilateral foraminal stenosis due to disc and osteophyte and facet disease. 4. Focal marrow edema in the LEFT L2 pedicle.
== END 2023-10-10 08:53 | disposition home or self-care (01) ==
LOC: RAD 08:52
PROVIDERS: PCP Family Medicine; Visit Provider Orthopaedic Surgery
DX: M51.16 Intervertebral disc disorders with radiculopathy, lumbar region (principal); R20.0 Anesthesia of skin; M51.26 Other intervertebral disc displacement, lumbar region; M48.07 Spinal stenosis, lumbosacral region; M25.78 Osteophyte, vertebrae; M47.817 Spondylosis without myelopathy or radiculopathy, lumbosacral region
CPT/HCPCS: 72148

== ENCOUNTER → 2023-10-12 10:03 | Outpatient (BNVA) | payer OTHER, SELFPAY | PROVIDERS: PCP Family Medicine; Visit Provider Physician Assistant | DX: M51.26 Other intervertebral disc displacement, lumbar region; M47.26 Other spondylosis with radiculopathy, lumbar region; M48.061 Spinal stenosis, lumbar region without neurogenic claudication | CPT/HCPCS: 99214 ==

== ENCOUNTER → 2023-11-03 09:03 | Outpatient (BNVA) | payer OTHER, SELFPAY | PROVIDERS: PCP Family Medicine; Visit Provider Nurse Practitioner | DX: M19.012 Primary osteoarthritis, left shoulder (principal); Z71.89 Other specified counseling | CPT/HCPCS: 20610; J1100; J2795; J3301 ==

== ENCOUNTER 2023-11-10 09:08 | Outpatient (CLI) | payer OTHER, SELFPAY ==
[2023-11-10 10:20] LABS: Add Urine Microscopic? NO; Charge for UA Resulting for Rev
[2023-11-10 10:39] LABS: Bilirubin Urine Neg (Negative); Blood Urine Neg (Negative); Glucose Urine UA Norm (Normal); Ketones Urine 1+ (Negative); Leukocyte Esterase Urine Negative (Negative); Nitrate Urine Negative (Negative); Protein Urine Neg (Negative); Urine Appearance Clear (CLEAR); Urine Color Yellow (Yellow); Urobilinogen Urine Norm (Negative); pH Urine 5 (5-7)
[2023-11-10 10:43] LABS: Basophils # 0.1 10^3/uL (0.0-0.1); Basophils % 0.6 %; Eosinophils # 0.1 10^3/uL (0.0-0.8); Eosinophils % 1.5 %; Lymphocytes # 2.7 10^3/uL (0.8-4.8); Lymphocytes % 29.9 %; Mean Corpuscular HGB Conc 31.2 g/dL (30-55); Mean Corpuscular Hemoglobin 28.1 pg (27-33); Mean Corpuscular Volume 90.1 fl (82-101); Mean Platelet Volume 9.8 fL (7.4-10.4); Monocytes # 0.4 10^3/uL (0.2-0.9); Monocytes % 4.9 %; Neutrophils # 5.59 10^3/uL (1.8-7.7); Neutrophils % 62.8 %; Nucleated Red Blood Cells % 0 %; Platelet Count 300 10^3/cmm (157-399); Red Blood Count 4.66 10^6/uL (3.85-5.65); Red Cell Distribution Width 14.6 % (12.1-15.1)
[2023-11-10 10:55] LABS: Alanine Aminotransferase 18 U/L (0-41); Albumin Level 4.2 g/dL (3.5-5.2); Alkaline Phosphatase 110 U/L (40-130); Anion Gap 15.2 (5-19); Aspartate Amino Transferase 18 U/L (0-40); Blood Urea Nitrogen 19 mg/dL (8-23); Calcium 10.5 mg/dL (8.5-10.5); Carbon Dioxide 25 mmol/L (22-29); Chloride 103 mmol/L (98-107); Globulin 3.1 g/dL (1.3-4.6); Glucose 85 mg/dL (65-115); Osmolality Calculated 290 mOsm/kg (285-295); Potassium 4.2 mmol/L (3.5-5.1); Sodium 139 mmol/L (136-145); Total Bilirubin 0.4 mg/dL (0.15-1.2); Total Protein 7.3 g/dL (6.6-8.7)
[2023-11-10 13:45] LABS: Estmated Average Glucose 143; Hemoglobin A1C 6.6 % (4.0-6.0)
== END 2023-11-10 09:09 | disposition home or self-care (01) ==
LOC: LAB 09:09
PROVIDERS: Family Medicine; PCP Family Medicine; Visit Provider Physician Assistant
DX: M51.16 Intervertebral disc disorders with radiculopathy, lumbar region (principal); Z01.818 Encounter for other preprocedural examination
CPT/HCPCS: 36415; 80053; 81003; 83036; 85025

== ENCOUNTER 2023-11-15 10:27 | Day surgery (SDC) | payer OTHER, SELFPAY ==
[2023-11-15] VITALS (11 sets, daily range): BP systolic 119–167; BP diastolic 66–101; PULSE 65–94; RESP 14–18; TEMP 36.1–36.6; O2SAT 91–96; BMI 46.6
--- NOTE | 2023-11-15 | XR_ITS ---
WS: [id number] Exam: XR lumbar spine 2-3V* [id number] Date/Time of Exam: 11/15/2023 12:00 AM Reason For Exam: OR PICS AP C arm images of the lower lumbar spine were obtained for intraoperative and localization purposes.
[2023-11-15 11:16] LABS: Glucose Point of Care 138 mg/dL (70-110)
[2023-11-15] MEDS: sodium chloride 0.9% 1,000 ML 30 ML IV (11:26)
--- NOTE | 2023-11-15 13:16 | ANES.PREANE2 ---
Pre-Anesthetic Assessment Height/Weight: Height 1.68 m Weight 131.088 kg Temp Pulse Resp BP Pulse Ox O2 Del Method 97 F L 94 18 157/84 96 Room Air 11/15/23 11:03 11/15/23 11:03 11/15/23 11:03 11/15/23 11:03 11/15/23 11:03 11/15/23 11:03 Preop Diagnosis: Lumbar stenosis with neurogenic claudication Operation Date: 11/15/23 12:25 Proposed Procedures p Lumbar Spine Decompression L4/5,L5/S1(Not Applicable) - Juan Miguel Cunningham, DO Familial anesthetic complications: None Was Beta Paul taken within 24 hours: N/A Was Clonidine taken within 24 hours: N/A Last intake: Intake Last Liquid Date 11/15/23 Last Liquid Time 06:30 Last Solid Date 11/14/23 Last Solid Time 20:00 Social No alcohol and No tobacco Exam alert, oriented x 3, clear to auscultation bilaterally and regular rate & rhythm Airway Mallampati: Class III Dentition: false Comments: Comments: [place] CV/HEM Hypertension Metabolic Diabetes Mellitus and Morbid Obesity Neuropsych Transient Ischemic Attack (> 1 year ago) Anesthetic Plan ASA status: 3 Anesthesia: General Risk of > 500 ml blood loss (7ml/kg in children): No Medications/Allergies Home Medications Medication Instructions Recorded Confirmed Last Taken Type allopurinol 300 mg tablet 300 mg PO QAM 11/20/19 11/14/23 11/15/23 06:30 History metformin 1,000 mg tablet 1,000 mg PO BID 11/20/19 11/14/23 11/13/23 History tamsulosin 0.4 mg capsule 0.4 mg PO QPM 11/20/19 11/14/23 11/15/23 06:30 History gabapentin 300 mg capsule 900 mg (3 x 300 mg) PO TID 30 days 11/03/20 11/14/23 11/15/23 06:30 Rx #270 caps hydrocodone 10 mg-acetaminophen 1 tab PO .5 times a day pain 30 09/24/21 11/14/23 11/15/23 06:30 Rx 325 mg tablet days #150 tabs aspirin 325 mg tablet 325 mg PO DAILY 11/10/23 11/14/23 11/07/23 History cholecalciferol (vitamin D3) 50 50 mcg PO DAILY 11/10/23 11/14/23 11/15/23 06:30 History mcg (2,000 unit) capsule duloxetine 60 mg capsule,delayed 60 mg PO DAILY 11/10/23 11/14/23 11/15/23 06:30 History release glipizide 10 mg tablet 20 mg PO BID 11/10/23 11/14/23 11/13/23 History lisinopril 10 mg tablet 5 mg PO DAILY 11/10/23 11/14/23 11/13/23 History meclizine 25 mg tablet 25 mg PO TID PRN Nausea 11/10/23 11/14/23 11/15/23 06:30 History methocarbamol 750 mg tablet 750 mg PO QID 11/10/23 11/15/23 11/15/23 06:30 History pioglitazone 30 mg tablet 30 mg PO DAILY 11/10/23 11/14/23 11/13/23 History pravastatin 40 mg tablet 40 mg PO QPM 11/10/23 11/14/23 11/14/23 History Allergies Allergy/AdvReac Type Severity Reaction Status Date / Time ibuprofen Allergy NAUSEA Verified 11/15/23 10:45 VOMITING latex Allergy BLISTERS Verified 11/15/23 10:45 propoxyphene Allergy NAUSEA Verified 11/15/23 10:45 VOMITING BLISTERS Current Medications Generic Name Dose Route Start Last Admin Trade Name Freq PRN Reason Stop Dose Admin Sodium Chloride 1,000 mls @ 30 mls/hr 11/15/23 10:45 11/15/23 11:26 Sodium Chloride 0.9% IV 11/16/23 10:44 30 mls/hr .Q24H ДМИТРИЙ Administration PFSH Anesthesia Medical History COVID-19 2019 Opioid contract exists Encounter for long-term opiate analgesic use History of liver injury RUPTURED LIVER Arthralgia of lumbar spine Neuropathy Sacroiliitis Lumbar disc disease with radiculopathy Surgical History Hx of arthroscopic knee surgery LEFT 2000 ;RIGHT 02/10 - [facility] Hx of tonsillectomy Hx of carpal tunnel repair BILATERAL Hx of parathyroidectomy Hx of total knee replacement BILATERALLY Family History Father Cancer LUNG CANCER Lung disease Mother Diabetes Family/Other Diabetes COUSIN Stroke COUSIN Suicide Denies family history of CAD (coronary artery disease) Clotting disorder Dementia Chronic kidney disease (CKD) Anesthesia complication Bleeding disorder Social History Smoking and tobacco/nicotine status: former use of tobacco/nicotine Quit status (tobacco/nicotine): has quit using Second hand smoke exposure: No Alcohol intake: never Substance/Drug Use: never Data Anesthesia Cardiac Studies: Echocardiogram Ultrasound 04/28/21 Cardiac Event Monitor 05/04/21
--- NOTE | 2023-11-15 13:40 | W.PM.OPSUD ---
Surgery/Procedure H&P Update DATE OF PROCEDURE: November 15, 2023 DATE H&P PERFORMED: 11/10/23 H&P UPDATE INFORMATION: I have reviewed H&P completed within last 30 days, I have examined patient prior to procedure and No changes to prior documentation PREOP DIAGNOSIS: Lumbar stenosis with neurogenic claudication PLANNED PROCEDURE: Operation Date: 11/15/23 12:25 Proposed Procedures p Lumbar Spine Decompression L4/5,L5/S1(Not Applicable) - Juan Miguel Cunningham DO
[2023-11-15] MEDS: ceFAZolin 3,000 MG in sodium chloride 0.9% (plus) 100 ML 200 MG IV (14:14)
[2023-11-15] MEDS: lidocaine-epi 2% 20 mL INJ INJECTION (14:47)
--- NOTE | 2023-11-15 16:04 | PM.OP ---
Operative Report Date of procedure: November 15, 2023 Pre-op diagnosis: Lumbar stenosis with neurogenic claudication Post-op diagnosis: same Procedure done: 1. L4-5 laminectomy with partial facetectomy on the right 2. L5-S1 laminectomy with partial facetectomy on the right Surgeon: Juan Miguel Cunningham DO Estimated blood loss (mL): 10 Procedure: 1. L4-5 laminectomy with partial facetectomy on the right 2. L5-S1 laminectomy with partial facetectomy on the right Patient is brought to the operative suite. After undergoing anesthesia they are placed in the prone position. All areas of impingement are well padded. Patient is then prepped and draped in the normal sterile fashion. A skin incision is made over the L4/5 level. This is confirmed under c-arm guidance. A series of dilators are passed and the tubular retractor is docked on the L4 lamina. A bovie is used to clear the soft tissue off the lamina and the L 4/5 facet joint. A high speed quan is then used to perform the laminectomy and take down the medial aspect of the L 4/5 facet joint. A kerrison rongeure was then used to take down the remaining lamina and smooth the edge of the laminectomy up to the point where the ligamentum flavum attaches. Attention was then brought to the medial aspect of the facet joint. The remaining medial aspect of the superior and inferior aspect of the facet joint were taken down with the kerrison from the pedicle of L4 to L 5. The facet joint had significant hypertrophy. Attention was then brought to the Ligamentum Flavum. The ligament was taken down from the lamina of L4 to L5 and out medially to the remaining facet joint. The ligament was thick. The dura was then exposed. The dura was in good repair. The L4 nerve was then traced with a curette out the L4/5 foramen and found to be adequately decompressed. The L5 nerve was traced with a curette around the L5 pedicle. The lateral recess was opened with a kerrison helping to further decompress the L5 nerve. Wound is then irrigated copiously with saline and surgiflo is used to stop any bleeding. The tubular retractor is removed and the A skin incision is made over the L5/S1 level. This is confirmed under c-arm guidance. A series of dilators are passed and the tubular retractor is docked on the L5 lamina. A bovie is used to clear the soft tissue off the lamina and the L 5/S1 facet joint. A high speed quan is then used to perform the laminectomy and take down the medial aspect of the L 5/S1 facet joint. A kerrison rongeure was then used to take down the remaining lamina and smooth the edge of the laminectomy up to the point where the ligamentum flavum attaches. Attention was then brought to the medial aspect of the facet joint. The remaining medial aspect of the superior and inferior aspect of the facet joint were taken down with the kerrison from the pedicle of L5 to S1. The facet joint had significant hypertrophy. Attention was then brought to the Ligamentum Flavum. The ligament was taken down from the lamina of L5 to S1 and out medially to the remaining facet joint. The ligament was thick. The dura was then exposed. The dura was in good repair. The L5 nerve was then traced with a curette out the L5/S1 foramen and found to be adequately decompressed. The S1 nerve was traced with a curette around the S1 pedicle. The lateral recess was opened with a kerrison helping to further decompress the S1 nerve. Wound is then irrigated copiously with saline and surgiflo is used to stop any bleeding. The tubular retractor is removed and the wound is closed with vicryl and monocryl suture. Glue is then used to protect the wound. A sterile dressing is then placed. Patient was then placed in the supine position and transferred to the PACU in stable condition.
[2023-11-15] MEDS: HYDROcodone-acetaminophen 10-325 mg Tablet 1 TAB PO (16:29)
--- NOTE | 2023-11-15 17:05 | ANE.PACU2 ---
Inpatient post-anesthesia follow up: Airway intact: Yes Vital signs: Temperature 98 F Pulse Rate 69 Respiratory Rate 16 Blood Pressure 134/75 Pulse Oximetry 94 Oxygen Delivery Me thod Room Air Oxygen Flow Rate 6 Fraction of Inspir ed Oxygen Hydration adequate: Yes Nausea and vomiting: No Pain level: 1 Mental status: Baseline
== END 2023-11-15 17:05 | disposition home or self-care (01) ==
PROVIDERS: PCP Family Medicine; Visit Provider Orthopaedic Surgery
PROC: (CPT 63005; principal; 2023-11-15 12:15)
DX: M48.062 Spinal stenosis, lumbar region with neurogenic claudication (principal); I10 Essential (primary) hypertension; E11.9 Type 2 diabetes mellitus without complications; E66.01 Morbid (severe) obesity due to excess calories; Z68.42 Body mass index [BMI] 45.0-49.9, adult; Z86.73 Personal history of transient ischemic attack (TIA), and cerebral infarction without residual deficits; Z79.84 Long term (current) use of oral hypoglycemic drugs; Z86.16 Personal history of COVID-19; Z87.891 Personal history of nicotine dependence
CPT/HCPCS: 63047; 63048; 36416; 72100; 76000; 82962; J0330; J0690; J1100; J2405; J2704; J2710; J3010; J3490; J7030

== ENCOUNTER 2023-11-17 13:52 | Inpatient (IN) | payer OTHER, SELFPAY ==
[2023-11-17 13:54] VITALS: BP 118/69; PULSE 90; RESP 20; O2SAT 92; BMI 46.7
--- NOTE | 2023-11-17 14:23 | ED_ITS ---
HPI - Back Pain/Injury General: Chief Complaint: Back Pain/Injury Stated Complaint: spine surgery 2 days ago, lower back pain Time Seen by Provider: 11/17/23 13:56 Source: patient Mode of arrival: EMS Limitations: no limitations History of Present Illness: Patient comes to the emergency department because of increasing pain in his lumbar and lower back. Patient had a lumbar laminectomy on the as an outpatient was discharged home. He states his pain is been uncontrolled by his oral pain medicines since he is arrived home. States it comes in waves and he has radiation of his pain down both legs. He was initially having sciatica pain down 1 leg but now is noted to down both legs. He states he is urinating but has not had bowel movement but has passed gas. Denies any fevers or chills. He otherwise denies any other constitutional complaints such as chest pain shortness of breath etc. Pertinent past history: prior back pain and back surgery Timing: progressively worsening Location: lumbar spine Radiation: left leg below the knee and right leg below the knee Exacerbating factors: movement Relieving factors: none Associated symptoms: Deny abdominal pain, chills, dysuria, fever(s), nausea or vomiting Review of Systems Const: Denies: fever(s) or chills Eyes: Denies: change in vision ENMT: Denies: throat pain, odynophagia, nasal discharge or nasal congestion Card: Denies: chest pain, palpitations or irregular heart rhythm Resp: Denies: dyspnea, productive cough or non-productive cough GI: Denies: abdominal pain, nausea, vomiting or diarrhea : Denies: flank pain, difficulty urinating, dysuria, urinary frequency or urinary incontinence Musc: Reports: back pain and extremity pain Skin/Breast: Denies: rash, pruritus or erythema Neuro: Denies: headache(s), numbness in extremities or weakness in extremities PFSH ED PFSH: Medical History COVID-19 2019 Opioid contract exists Encounter for long-term opiate analgesic use History of liver injury RUPTURED LIVER Arthralgia of lumbar spine Neuropathy Sacroiliitis Lumbar disc disease with radiculopathy Surgical History Hx of arthroscopic knee surgery LEFT 2000 ;RIGHT 02/10 - [facility] Hx of tonsillectomy Hx of carpal tunnel repair BILATERAL Hx of parathyroidectomy Hx of total knee replacement BILATERALLY Family History Father Cancer LUNG CANCER Lung disease Mother Diabetes Family/Other Diabetes COUSIN Stroke COUSIN Suicide Denies family history of CAD (coronary artery disease) Clotting disorder Dementia Chronic kidney disease (CKD) Anesthesia complication Bleeding disorder Social History Smoking and tobacco/nicotine status: former use of tobacco/nicotine Quit status (tobacco/nicotine): has quit using Second hand smoke exposure: No Alcohol intake: never Substance/Drug Use: never Physical Exam Narrative: EXAM NARRATIVE: Patient is alert and answers questions in a goal-directed fashion. He is uncomfortable. Const: COMMON NORMALS: patient oriented x3 and alert GENERAL APPEARANCE: cooperative NUTRITIONAL APPEARANCE: obese HENMT: COMMON NORMALS: normocephalic, Normal nasal mucous membranes and turbinates present and moist oral mucous membranes HEAD & SCALP: normocephalic NOSE: Normal nasal mucous membranes and turbinates present Eye: COMMON NORMALS: Equal, round and reactive pupils present, EOMs intact bilaterally and conjunctivae normal CONJUNCTIVA: Yes conjunctivae normal PUPIL: Yes Equal, round and reactive pupils present Neck/C-Spine: COMMON NORMALS: full ROM, no lymphadenopathy and supple Chest: COMMONS NORMALS: normal inspection of the chest Resp: COMMON NORMALS: normal respiratory effort, No retractions, No use of accessory muscles and clear to auscultation bilaterally AUSCULTATION: clear to auscultation bilaterally Cardio: COMMON NORMALS: regular rate, regular rhythm, No murmurs present (Cardio) and Peripheral pulses 2+ throughout RATE: regular rate RHYTHM: regular rhythm PERIPHERAL PULSES: Peripheral pulses 2+ throughout GI: COMMON NORMALS: Normal to inspection, nondistended, normoactive bowel sounds present, Soft to palpation and non-tender INSPECTION: Yes central obesity PALPATION: Yes Soft to palpation Back/Pelvis: OTHER: Examination of the back reveals dressing over surgical incision without any evidence of drainage or bleeding etc. No axial spine tenderness superior to the area of surgery. Extremity: COMMON NORMALS: normal to inspection, full ROM, capillary refill normal and no calf tenderness Neuro: COMMON NORMALS: patient oriented x3, moves all extremities and no focal motor deficits SENSORIUM/ORIENTATION: Yes alert CRANIAL NERVES: Yes CN normal except as noted Psych: COMMON NORMALS: mental status grossly normal Skin: COMMON NORMALS: no rashes or lesions noted and turgor normal GENERAL SKIN EXAM: no rashes or lesions noted and turgor normal Course Reevaluation(s): Reevaluation #1: Bedside ultrasound was used to visualize urinary bladder. Patient is noted to have significant amount urine and a distended bladder. Also's sensation to perineal region appears to be diminished according the patient's subjective response. Given patient's postoperative status pain and findings noted above Dr. Cunningham was consulted and will go ahead and plan for imaging and likely admission for pain control and steroids depending on imaging findings. Time: 14:39 Reevaluation #2: Given MRI findings discussed with Dr. Cunningham we will go and place the patient in the hospital for further care and evaluation which may include decompression etc. Patient informed the patient of the findings and the plan of care and he was in agreement. Time: 16:06 Consultations: Consultation #1: Discussed with Dr. Cunningham. He recommends pain control steroids and MRI of possible in likely admission for symptom control. Time: 14:28 Vital Signs: Vital signs: Vital Signs Pulse Rate 96 11/17/23 15:40 Respiratory Rate 16 11/17/23 15:40 Blood Pressure 122/69 11/17/23 15:40 Pulse Oximetry 98 11/17/23 14:39 Oxygen Delivery Me thod Room Air 11/17/23 13:54 MDM - Back Pain/Injury Medical Decision Making This patient return to the emergency department because of increasing pain in his lower back. He had a lumbar laminectomy at this facility 2 days prior and had increasing pain without fever or subsequent injury etc. He states the pain radiated down both legs and was significant and severe. Clinical examination revealed him to be uncomfortable his incision site looked clean without any evidence of bleeding erythema etc. He had no evidence of sensation loss distally he had no loss of motor function distally. He did have significant urinary retention on bedside ultrasound as well as some decrease in perineal sensation to direct examination. Imaging was obtained as well as orthopedic/spine surgery consultation. There was some concern about possible compression of the cauda equina by either hematoma and/or other fluid and therefore the patient is being admitted for further evaluation and treatment as indicated. All radiology interpretation(s) finalized by discharge ED provider radiology interpretation(s): Discussed preliminary findings by telephone with the consulting radiologist. Discharge Plan Discharge Patient Disposition: Admitted As Inpatient Clinical Impression: Lumbar radiculopathy, Low back pain, Status post laminectomy Condition: Stable Prescriptions: No Action allopurinol 300 mg tablet 300 mg PO QAM metformin 1,000 mg tablet 1,000 mg PO BID tamsulosin 0.4 mg capsule 0.4 mg PO QPM pravastatin 40 mg tablet 40 mg PO QPM glipizide 10 mg tablet 20 mg PO BID gabapentin 300 mg capsule 900 mg PO TID 30 Days Qty: 270 1RF lisinopril 10 mg tablet 5 mg PO DAILY methocarbamol 750 mg tablet 750 mg PO QID meclizine 25 mg tablet 25 mg PO TID PRN (Reason: Nausea) pioglitazone 30 mg tablet 30 mg PO DAILY duloxetine 60 mg capsule,delayed release(DR/EC) 60 mg PO DAILY cholecalciferol (vitamin D3) 50 mcg (2,000 unit) capsule 50 mcg PO DAILY aspirin 325 mg tablet 325 mg PO DAILY hydrocodone-acetaminophen 10-325 mg tablet 1 - 2 tab PO Q4H PRN (Reason: pain) 7 Days Qty: 40 0RF Referrals: Ara Rubio MD [Primary Care Provider] - Coding Level of Care Code ED [employer] Worker for Rafael Rahman
--- NOTE | 2023-11-17 14:28 | MR_ITS ---
WS: [id number] MRI LUMBAR SPINE NONCONTRAST TECHNIQUE: Sagittal T1, T2 and STIR imaging. Axial T1 and T2 imaging. CLINICAL INFORMATION: increased pain; post op 2 days COMPARISON: 10/10/2023 FINDINGS: Recent postoperative changes RIGHT L4-5 and L5-S1 laminectomies with partial facetectomies. Compressi on of the cauda equina nerve rootlets at multiple levels due to epidural and subdural blood products considering recent surgery postoperative 2 days. There appears to be a mixture of epidural and subdur al blood products. This extends up to the L1 level. L1-L2: Ventral displacement and compression of the thecal sac with crowding of the cauda equina nerve rootlets due to dorsal epidural and subdural blood products at this level. L2-L3: Epidural and subdural blood products results in moderate symmetric compression of the thecal s ac L3-L4: Small amount of epidural and subdural blood products results in moderate compression of the th ecal sac. Moderate facet arthropathy. LEFT foraminal protrusion with mild to moderate LEFT foraminal narrowing. Mild RIGHT foraminal narrowing. L4-L5: Postoperative changes RIGHT hemilaminectomy. Fluid with epidural and subdural blood products r esults in severe narrowing of the thecal sac with crowding of the cauda equina nerve rootlets. Advanc ed facet arthropathy. RIGHT foraminal protrusion impinges the exiting RIGHT L4 nerve root.. L5-S1: Postoperative changes RIGHT hemilaminectomy. Severe narrowing of the thecal sac and cauda equi na nerve rootlets due to postoperative blood products and fluid. Advanced facet arthropathy. Slight a nterolisthesis L5 on S1. Mild RIGHT greater than LEFT foraminal narrowing. Partially visualized LEFT renal cysts. IMPRESSION: 1. Ventral displacement with multilevel narrowing of the thecal sac and compression of the cauda equ romulo nerve rootlets L1-L5 due to epidural and subdural blood products. This is most severe at L1-L2, L2-L3, L4-L5 and L5-S1. Moderate narrowing at L3-4. 2. Recent postoperative changes RIGHT L4-5 and L5-S1 laminectomies with partial facetectomies Notified Arsh Can DO at 11/17/2023 3:57 PM.
[2023-11-17 14:39] VITALS: RESP 17; O2SAT 98
[2023-11-17] MEDS: HYDROmorphone 1 mg/mL INJ 1 mL IVP ×3 (14:39→20:47)
[2023-11-17] MEDS: dexamethasone 10 mg/mL INJ IVP ×2 (14:40→21:08)
[2023-11-17 15:40] VITALS: BP 122/69; PULSE 96; RESP 16
--- NOTE | 2023-11-17 17:25 | ED_ITS ---
HPI - Back Pain/Injury General: Chief Complaint: Back Pain/Injury Stated Complaint: spine surgery 2 days ago, lower back pain Time Seen by Provider: 11/17/23 13:56 Source: patient Limitations: no limitations History of Present Illness: 73-year-old male came into the ER been h aving pain since surgery. At this point pain became severe today pain is rating both his legs patient is able to urinate but did a bladder scan he did have urine in his bladder this point patient is lying on the gurney in the ER just set up to urinate and was doing okay but then when he is set up seem to radiate the pain down his legs. Exacerbating factors: movement Relieving factors: none Associated symptoms: Deny abdominal pain, chills, dysuria, fever(s), nausea or vomiting Review of Systems Const: Denies: fever(s) or chills Eyes: Denies: change in vision ENMT: Denies: throat pain, odynophagia, nasal discharge or nasal congestion Card: Denies: chest pain, palpitations or irregular heart rhythm Resp: Denies: dyspnea, productive cough or non-productive cough GI: Denies: abdominal pain, nausea, vomiting or diarrhea : Denies: flank pain, difficulty urinating, dysuria, urinary frequency or urinary incontinence Musc: Reports: back pain and extremity pain Skin/Breast: Denies: rash, pruritus or erythema Neuro: Denies: headache(s), numbness in extremities or weakness in extremities PFSH ED PFSH: Medical History COVID-19 2019 Opioid contract exists Encounter for long-term opiate analgesic use History of liver injury RUPTURED LIVER Arthralgia of lumbar spine Neuropathy Sacroiliitis Lumbar disc disease with radiculopathy Surgical History Hx of arthroscopic knee surgery LEFT 2000 ;RIGHT 02/10 - DENG Hx of tonsillectomy Hx of carpal tunnel repair BILATERAL Hx of parathyroidectomy Hx of total knee replacement BILATERALLY Family History Father Cancer LUNG CANCER Lung disease Mother Diabetes Family/Other Diabetes COUSIN Stroke COUSIN Suicide Denies family history of CAD (coronary artery disease) Clotting disorder Dementia Chronic kidney disease (CKD) Anesthesia complication Bleeding disorder Social History Smoking and tobacco/nicotine status: former use of tobacco/nicotine Quit status (tobacco/nicotine): has quit using Second hand smoke exposure: No Alcohol intake: never Substance/Drug Use: never Physical Exam Narrative: EXAM NARRATIVE: Patient is moving both his legs he is complaining of pain shooting down both his legs and his appears to be in severe pain. Course Vital Signs: Vital signs: Vital Signs Pulse Rate 96 11/17/23 15:40 Respiratory Rate 16 11/17/23 15:40 Blood Pressure 122/69 11/17/23 15:40 Pulse Oximetry 98 11/17/23 14:39 Oxygen Delivery Me thod Room Air 11/17/23 13:54 Discharge Plan Discharge Patient Disposition: Admitted As Inpatient Clinical Impression: Lumbar radiculopathy, Status post laminectomy Low back pain Qualifiers: Chronicity: acute Back pain laterality: midline Sciatica presence: with sciatica Sciatica laterality: bilateral sciatica Qualified Code(s): M54.42 - Lumbago with sciatica, left side Condition: Stable Coding Level of Care Code ED Track Greaser for Rafael Rahman
[2023-11-17] MEDS: diazePAM 5 mg Tablet PO (18:11)
[2023-11-17] MEDS: atorvastatin 40 mg Tablet 20 MG PO (18:11)
[2023-11-17] MEDS: tamsulosin 0.4 mg Capsule PO (18:12)
--- NOTE | 2023-11-17 18:57 | PM.HP ---
Providers/Chief Complaint Admitting Physician: Juan Miguel Cunningham DO Primary Care Provider: Ara Rubio MD Chief Complaint: spine surgery 2 days ago, lower back pain History of Present Illness Bolivar Martinez is a 73 year old male had surgery 2 days ago has progressive worsening pain today the pain was so severe he came to the ER. Pain is going on the back of both his legs. He is complaining of some numbness. He is able to pee related to bladder scan which did show urine in his bladder. MRI was done which showed hematoma and postoperative changes. Review of Systems Const: Denies: fever(s) or chills Eyes: Denies: change in vision ENMT: Denies: throat pain, odynophagia, nasal discharge or nasal congestion Card: Denies: chest pain, palpitations or irregular heart rhythm Resp: Denies: dyspnea, productive cough or non-productive cough GI: Denies: abdominal pain, nausea, vomiting or diarrhea : Denies: flank pain, difficulty urinating, dysuria, urinary frequency or urinary incontinence Musc: Reports: back pain and extremity pain Skin/Breast: Denies: rash, pruritus or erythema Neuro: Denies: headache(s), numbness in extremities or weakness in extremities Medications/Allergies Home Medications Medication Instructions Recorded Confirmed Last Taken Type allopurinol 300 mg tablet 300 mg PO QAM 11/20/19 11/17/23 11/17/23 History metformin 1,000 mg tablet 1,000 mg PO BID 11/20/19 11/17/23 11/17/23 History tamsulosin 0.4 mg capsule 0.4 mg PO QPM 11/20/19 11/17/23 11/16/23 History gabapentin 300 mg capsule 900 mg (3 x 300 mg) PO TID 30 days 11/03/20 11/17/23 11/17/23 Rx #270 caps aspirin 325 mg tablet 325 mg PO DAILY 11/10/23 11/17/23 11/17/23 History cholecalciferol (vitamin D3) 50 50 mcg PO DAILY 11/10/23 11/17/23 11/17/23 History mcg (2,000 unit) capsule duloxetine 60 mg capsule,delayed 60 mg PO DAILY 11/10/23 11/17/23 11/17/23 History release glipizide 10 mg tablet 20 mg PO BID 01/10/2211/17/23 11/17/23 History lisinopril 10 mg tablet 5 mg PO DAILY 11/10/23 11/17/23 11/17/23 History meclizine 25 mg tablet 25 mg PO TID PRN Nausea 11/10/23 11/17/23 11/15/23 06:30 History methocarbamol 750 mg tablet 750 mg PO QID 11/10/23 11/17/23 11/17/23 History pioglitazone 30 mg tablet 30 mg PO DAILY 11/10/23 11/17/23 11/13/23 History pravastatin 40 mg tablet 40 mg PO QPM 11/10/23 11/17/23 11/16/23 History hydrocodone 10 mg-acetaminophen 1 - 2 tab PO Q4H PRN pain 7 days 11/15/23 11/17/23 11/17/23 Rx 325 mg tablet #40 tabs Allergies Allergy/AdvReac Type Severity Reaction Status Date / Time ibuprofen Allergy NAUSEA Verified 11/15/23 10:45 VOMITING latex Allergy BLISTERS Verified 11/15/23 10:45 propoxyphene Allergy NAUSEA Verified 11/15/23 10:45 VOMITING BLISTERS PFSH Acute PFSH: Medical History COVID-19 2019 Opioid contract exists Encounter for long-term opiate analgesic use History of liver injury RUPTURED LIVER Arthralgia of lumbar spine Neuropathy Sacroiliitis Lumbar disc disease with radiculopathy Surgical History Hx of arthroscopic knee surgery LEFT 2000 ;RIGHT 02/10 - DENVANDA Hx of tonsillectomy Hx of carpal tunnel repair BILATERAL Hx of parathyroidectomy Hx of total knee replacement BILATERALLY Family History Father Cancer LUNG CANCER Lung disease Mother Diabetes Family/Other Diabetes COUSIN Stroke COUSIN Suicide Denies family history of CAD (coronary artery disease) Clotting disorder Dementia Chronic kidney disease (CKD) Anesthesia complication Bleeding disorder Social History Smoking and tobacco/nicotine status: former use of tobacco/nicotine Quit status (tobacco/nicotine): has quit using Second hand smoke exposure: No Alcohol intake: never Substance/Drug Use: never Vitals/I&O/Wt Last Vital Signs Pulse 96 11/17/23 15:40 Resp 16 11/17/23 15:40 BP 122/69 11/17/23 15:40 Pulse Ox 98 11/17/23 14:39 O2 Del Method Room Air 11/17/23 13:54 Weight last 48 hrs Weight 290 lb Physical Exam Narrative: Patient was examined in the ER is on the gurney in pain. He just sat up and peed and then this flared up his back pain again and his leg pain. Urinary Catheter Management: Ortiz: Cath Placed During This Visit: yes Urinary Catheter Date of Insertion: 11/17/23 Urinary Catheter Time of Insertion: 17:44 A&P Assessment and plan (1) Hematoma: Patient has a postoperative hematoma. At this point plan is to 10 pain control with Dilaudid and oxycodone. Will also give him some Valium for muscle spasm. Also give him some Decadron 10 mg every 6 hours. Will evaluate in the morning to see if he has improved if symptoms continue to worsen would likely have to take him back to surgery for hematoma evacuation. Attestations Medical Necessity Statement*: Pain control Coding Level of Care Code Acute Code for Chg Fwd Diagnoses Hematoma T14.8XXA
[2023-11-17 20:00] VITALS: BP 159/73; PULSE 111; RESP 18; TEMP 36.8; O2SAT 98
[2023-11-17 20:24] LABS: Glucose Point of Care 228 mg/dL (70-110)
[2023-11-17 20:47] VITALS: RESP 20; O2SAT 98
[2023-11-17] MEDS: gabapentin 300 mg Capsule 900 MG PO (21:09)
[2023-11-17] MEDS: methocarbamol 750 mg Tablet PO (21:09)
[2023-11-18] VITALS (28 sets, daily range): BP systolic 109–167; BP diastolic 62–104; PULSE 71–116; RESP 9–22; TEMP 36.2–37.7; O2SAT 92–99
--- NOTE | 2023-11-18 | XR_ITS ---
WS: [id number] XR lumbar spine 2-3V* [id number] REASON FOR EXAM: OZ PICS FINDINGS: Surgical probes overlying L3 and S1. IMPRESSION: Lumbar spine level localization and surgery as above.
[2023-11-18] MEDS: HYDROmorphone 1 mg/mL INJ 1 mL IVP ×3 (03:18→15:35)
[2023-11-18] MEDS: dexamethasone 10 mg/mL INJ IVP ×3 (03:19→21:10)
[2023-11-18] MEDS: sodium chloride 0.9% 1,000 ML 30 ML IV (10:00)
--- NOTE | 2023-11-18 10:11 | PC.NURSE ---
Pt requests that [id number] be notified of surgery; however, she is not listed in chart. Notified sister, Ciera, about surgery and she states she will call [id number] to notify.
--- NOTE | 2023-11-18 10:43 | W.PM.OPSUD ---
Surgery/Procedure H&P Update DATE OF PROCEDURE: November 18, 2023 DATE H&P PERFORMED: 11/17/23 H&P UPDATE INFORMATION: I have reviewed H&P completed within last 30 days, I have examined patient prior to procedure and No changes to prior documentation PLANNED PROCEDURE: Operation Date: 11/18/23 11:10 Proposed Procedures p Open Spine Decompression L3-S1(Not Applicable) - Juan Miguel Cunningham DO
--- NOTE | 2023-11-18 10:45 | ANES.PAUD2 ---
Pre-Anesthetic Update Pre-Anesthetic Assessment: Date of Surgery/Procedure: 11/18/23 Proposed Procedure: Operation Date: 11/18/23 11:10 Proposed Procedures p Open Spine Decompression L3-S1(Not Applicable) - Juan Miguel Cunningham, DO Any changes to Pre-Anesthetic Assessment?: No Last Intake: Intake Last Liquid Date 11/17/23 Last Liquid Time 23:00 Last Solid Date 11/17/23 Last Solid Time 09:00 Vitals: Temperature 98.6 F 11/18/23 09:57 Temperature Source Temporal Artery S can 11/18/23 09:57 Pulse Rate 77 11/18/23 09:57 Pulse Rhythm Regular 11/17/23 21:04 Pulse Strength 2+ Slightly Dimin ished 11/17/23 21:04 Respiratory Rate 22 H 11/18/23 09:57 Respiratory Effort Spontaneous, Non- Labored 11/18/23 05:58 Respiratory Depth Normal 11/18/23 05:58 Respiratory Patter n Normal 11/18/23 03:18 Blood Pressure 135/79 11/18/23 09:57 Blood Pressure Tamika n 97 11/18/23 09:57 Blood Pressure Pos ition Right Lateral 11/18/23 08:00 Pulse Oximetry 99 11/18/23 09:57 Oxygen Delivery Me thod Room Air 11/18/23 00:00 Sepsis Recent Feve r Within 48 Hours No 11/17/23 15:40 Exam: Pre-Anes Outpt Exam: alert, oriented x 3, clear to auscultation bilaterally and regular rate & rhythm Cardiac Studies: Echocardiogram Ultrasound 04/28/21 Cardiac Event Monitor 05/04/21
[2023-11-18] MEDS: ceFAZolin 3,000 MG in sodium chloride 0.9% (plus) 100 ML 200 MG IV (10:55)
[2023-11-18] MEDS: lidocaine-epi 2% 20 mL INJ INJECTION (11:26)
[2023-11-18] MEDS: thrombin 5,000 unit SDV 5000 UNIT XX (11:53)
[2023-11-18] MEDS: vancomycin 1,000 MG SDV 1000 MG XX (12:45)
--- NOTE | 2023-11-18 13:07 | PM.OP ---
Operative Report Date of procedure: November 18, 2023 Pre-op diagnosis: Epidural hematoma Lumbar stenosis with neurogenic claudication Early signs of cauda equina Post-op diagnosis: same Procedure done: 1. L3-4 laminectomy with partial facetectomies 2. L4-5 laminectomy with partial facetectomies 3. L5-S1 laminectomy with partial facetectomies Surgeon: Juan Miguel Cunningham DO Estimated blood loss (mL): 350 Brief History: Patient had a right-sided laminectomy with partial facetectomy at L4-5 and L5-S1 on 11/15/2023. Patient developed increasing pain and numbness Procedure: 1. L3-4 laminectomy with partial facetectomies 2. L4-5 laminectomy with partial facetectomies 3. L5-S1 laminectomy with partial facetectomies Patient is brought to the operative suite after undergoing anesthesia placed in the prone position. All his impingement well-padded patient's prepped draped normal sterile fashion. Skin incision made from L3 down to S1. The thoracolumbar fascia was split subperiosteal dissection was made out to the facet joints of L3-4 L4-5 and L5-S1. Retractors were placed. Attention was then brought to the L5-S1 level the previous laminectomy was done on the right side with partial facetectomy. The spinous process was taken off with a rongeur a high-speed bur was used to complete the laminectomy on the right side as well as the left side and then taking down more of the medial aspect of the facet joint on the right side as well as the medial aspect of the facet joint on the left side once the high-speed bur was completed then the Kerrison rongeur was used to take out the lamina remaining bilaterally as well as midline. Medial aspect of facet joints were taken down bilaterally with the Kerrison rongeur. Ligamentum flavum was taken down from L4-S1 bilaterally. And then the S1 nerve roots were traced out the foramen with a [place] felt to be adequately decompressed. Next tension was brought to the L4-5 level. Again there was a right-sided laminectomy. Of the high-speed bur was used to complete the laminectomy on the right side as well as take down the medial aspect of the facet joint. Spinous process was taken down with a rongeur and then the left side of the lamina was taken down completely along with the medial aspect of facet joint the ligamentum flavum was taken down from L for L5. This was done bilaterally. Medial aspect of facet joints were taken down the Kerrison rongeur. The L4 nerve was traced out the L4-5 foramen felt to be adequately decompressed and the L5 nerve was traced from the L5 pedicle bilaterally felt to adequately decompressed. Next tension was brought to the L3-4 level again spinous process was taken down. The lamina was taken down with a high-speed bur bilaterally. The medial aspects of the facet joints taken down bilaterally with high-speed bur. The ligamentum flavum was taken down from L3-L4 bilaterally. Kerrison rongeur was used to help remove the remaining lamina as well as medial aspect of facet joints and the ligamentum flavum. The dura was completely open hematoma was complete decompressed. A 14-gauge tubing was passed up underneath the L3 level and irrigated no hematoma came out. This point felt that the thecal sac was completely decompressed wounds were irrigated. Wound was then deep drain was placed vancomycin powder was placed and wound was closed in layered fashion with 0 Vicryl 2-0 Vicryl and Monocryl suture. Sterile dressings were applied patient was transferred to the PACU in stable condition.
--- NOTE | 2023-11-18 13:25 | PM.CONSULT ---
Providers/Reason For Consult Consulting Physician/Specialty*: Hospitalist Reason for Consult*: Postoperative management Attending Physician: Juan Miguel Cunningham DO Primary Care Provider: Ara Rubio MD History of Present Illness History of Present Illness Bolivar Martinez is a 73 year old male who had intervention done for hematoma related cauda equina symptoms after recent back surgery by Dr. Cunningham, hospital service has been consulted for postoperative management. Patient is doing well Ortiz catheter in place Hemovac in place as well Patient is cracking jokes In good spirits Hemodynamically stable Repeat CBC showed stable hemoglobin Review of Systems Eyes: Denies: change in vision ENMT: Denies: throat pain Card: Denies: chest pain Resp: Denies: dyspnea GI: Denies: abdominal pain : Denies: flank pain Musc: Denies: neck pain Skin/Breast: Denies: rash Medications/Allergies Home Medications Medication Instructions Recorded Confirmed Last Taken Type allopurinol 300 mg tablet 300 mg PO QAM 11/20/19 11/17/23 11/17/23 History metformin 1,000 mg tablet 1,000 mg PO BID 11/20/19 11/17/23 11/17/23 History tamsulosin 0.4 mg capsule 0.4 mg PO QPM 11/20/19 11/17/23 11/16/23 History gabapentin 300 mg capsule 900 mg (3 x 300 mg) PO TID 30 days 11/03/20 11/17/23 11/17/23 Rx #270 caps aspirin 325 mg tablet 325 mg PO DAILY 11/10/23 11/17/23 11/17/23 History cholecalciferol (vitamin D3) 50 50 mcg PO DAILY 11/10/23 11/17/23 11/17/23 History mcg (2,000 unit) capsule duloxetine 60 mg capsule,delayed 60 mg PO DAILY 11/10/23 11/17/23 11/17/23 History release glipizide 10 mg tablet 20 mg PO BID 11/10/23 11/17/23 11/17/23 History lisinopril 10 mg tablet 5 mg PO DAILY 11/10/23 11/17/23 11/17/23 History meclizine 25 mg tablet 25 mg PO TID PRN Nausea 11/10/23 11/17/23 11/15/23 06:30 History methocarbamol 750 mg tablet 750 mg PO QID 11/10/23 11/17/23 11/17/23 History pioglitazone 30 mg tablet 30 mg PO DAILY 11/10/23 11/17/23 11/13/23 History pravastatin 40 mg tablet 40 mg PO QPM 11/10/23 11/17/23 11/16/23 History hydrocodone 10 mg-acetaminophen 1 - 2 tab PO Q4H PRN pain 7 days 11/15/23 11/17/23 11/17/23 Rx 325 mg tablet #40 tabs hydrocodone 10 mg-acetaminophen 1 tab PO Q4H PRN pain 7 days #40 11/19/23 Unknown Rx 325 mg tablet tabs Allergies Allergy/AdvReac Type Severity Reaction Status Date / Time ibuprofen Allergy NAUSEA Verified 11/15/23 10:45 VOMITING latex Allergy BLISTERS Verified 11/15/23 10:45 propoxyphene Allergy NAUSEA Verified 11/15/23 10:45 VOMITING BLISTERS Current Medications Generic Name Dose Route Start Last Admin Trade Name Freq PRN Reason Stop Dose Admin Allopurinol 300 mg 11/18/23 06:00 11/18/23 04:22 Allopurinol 300 Mg Tablet PO Not Given QAM [facility] Atorvastatin Calcium 20 mg 11/17/23 18:00 11/17/23 18:11 Atorvastatin 40 Mg Tablet PO 20 mg QPM [facility] Administration Dexamethasone 10 mg 11/17/23 19:00 11/18/23 10:07 Dexamethasone 10 Mg/Ml Inj IVP Not Given Q6H [facility] Duloxetine HCl 60 mg 11/18/23 09:00 11/18/23 10:07 Duloxetine 60 Mg Capsule PO Not Given DAILY [facility] Gabapentin 900 mg 11/17/23 21:00 11/18/23 10:07 Gabapentin 300 Mg Capsule PO Not Given TID [facility] Hydromorphone HCl 1 mg 11/17/23 17:10 11/18/23 03:18 Hydromorphone 1 Mg/Ml Inj 1 Ml IVP 1 mg Q4H PRN Administration [facility] Sodium Chloride 1,000 mls @ 30 mls/hr 11/18/23 10:00 11/18/23 13:05 Sodium Chloride 0.9% IV 11/19/23 09:59 Infused .Q24H [facility] Infusion Lisinopril 5 mg 11/18/23 09:00 11/18/23 10:08 Lisinopril 10 Mg Tablet PO Not Given DAILY [facility] Metformin HCl 1,000 mg 11/17/23 18:00 11/18/23 10:07 Metformin 500 Mg Tablet PO Not Given BIDWM [facility] Methocarbamol 750 mg 11/17/23 21:00 11/18/23 10:08 Methocarbamol 750 Mg Tablet PO Not Given QID [facility] Non-Formulary Medication 20 mg 11/17/23 18:00 11/18/23 10:08 Glipizide PO Not Given BID [facility] Pioglitazone HCl 30 mg 11/18/23 09:00 11/18/23 10:08 Pioglitazone 30 Mg Tablet PO Not Given DAILY [facility] Tamsulosin HCl 0.4 mg 11/17/23 18:00 11/17/23 18:12 Tamsulosin 0.4 Mg Capsule PO 0.4 mg QPM [facility] Administration PFSH Acute PFSH: Medical History COVID-19 2019 Opioid contract exists Encounter for long-term opiate analgesic use History of liver injury RUPTURED LIVER Arthralgia of lumbar spine Neuropathy Sacroiliitis Lumbar disc disease with radiculopathy Surgical History Hx of arthroscopic knee surgery LEFT 2000 ;RIGHT 02/10 - DENNENY Hx of tonsillectomy Hx of carpal tunnel repair BILATERAL Hx of parathyroidectomy Hx of total knee replacement BILATERALLY Family History Father Cancer LUNG CANCER Lung disease Mother Diabetes Family/Other Diabetes COUSIN Stroke COUSIN Suicide Denies family history of CAD (coronary artery disease) Clotting disorder Dementia Chronic kidney disease (CKD) Anesthesia complication Bleeding disorder Social History Smoking and tobacco/nicotine status: former use of tobacco/nicotine Quit status (tobacco/nicotine): has quit using Second hand smoke exposure: No Alcohol intake: never Substance/Drug Use: never Vitals/I&O/Wt Last Vital Signs Temp 98.6 F 11/18/23 09:57 Pulse 77 11/18/23 09:57 Resp 22 H 11/18/23 09:57 BP 135/79 11/18/23 09:57 Pulse Ox 99 11/18/23 09:57 O2 Del Method Room Air 11/18/23 00:00 11/17/23 11/18/23 11/18/23 22:59 06:59 14:59 Intake Total 1100 / 1100 Output Total 1550 / 1550 200 / 200 Balance -1550 / -1550 900 / 900 Weight last 48 hrs Weight 127.187 kg Weight 127.097 kg Weight 131.542 kg Physical Exam Narrative: Awake and alert Morbidly obese Ortiz catheter Hemovac in place No active cauda equina symptoms Pleasant and cooperative Cracking jokes S1, S2 Currently on room air Urinary Catheter Management: Ortiz: Cath Placed During This Visit: yes Reason for Continuing Indwelling Catheter: Acute Urinary Retention or Obstruction Urinary Catheter Date of Insertion: 11/17/23 Urinary Catheter Time of Insertion: 17:44 Data 11/19/23 07:37 11/19/23 07:37 A&P Assessment and plan (1) Benign essential HTN: (2) Type 2 diabetes mellitus: (3) Low back pain: Qualifiers: Back pain laterality: midline Chronicity: acute Sciatica laterality: bilateral sciatica Sciatica presence: with sciatica Qualified Code(s): M54.42 - Lumbago with sciatica, left side; M54.41 - Lumbago with sciatica, right side (4) Hematoma: (5) Lumbar radiculopathy: (6) Neuropathy: (7) Status post laminectomy: Plan Postoperative management after hematoma evacuation Patient without cauda equina symptoms after recent back surgery by Dr. Cunningham Recheck CBC after surgery to keep an eye on H&H Hemodynamically stable Discontinue glipizide I will do sliding scale Postoperative pain management along bowel regimen Consult Attestations Medical Necessity Statement: As per orthopedics Diagnoses Benign essential HTN I10 Type 2 diabetes mellitus with hyperglycemia, without long-term current use of insulin E11.9 Low back pain M54.42; M54.41 Back pain laterality: midline Chronicity: acute Sciatica laterality: bilateral sciatica Sciatica presence: with sciatica Hematoma T14.8XXA Lumbar radiculopathy M54.16 Neuropathy G62.9 Status post laminectomy Z98.890
[2023-11-18] MEDS: ondansetron 2 mg/ML SDV 2 mL 4 MG IVP ×2 (14:10→14:12)
[2023-11-18] MEDS: fentaNYL 50 mcg/mL INJ 2mL IVP ×2 (14:15→14:27)
--- NOTE | 2023-11-18 14:50 | ANE.PACU2 ---
Inpatient post-anesthesia follow up: Airway intact: Yes Vital signs: Temperature 98.4 F Pulse Rate 97 Respiratory Rate 16 Blood Pressure 126/80 Pulse Oximetry 94 Oxygen Delivery Me thod Room Air Oxygen Flow Rate Fraction of Inspir ed Oxygen Hydration adequate: Yes Nausea and vomiting: No Pain level: 1 Mental status: Baseline
[2023-11-18] MEDS: gabapentin 300 mg Capsule 900 MG PO ×2 (15:36→21:10)
[2023-11-18] MEDS: oxyCODONE-APAP 10-325 mg Tablet 1 TAB PO ×2 (15:36→21:09)
[2023-11-18] MEDS: lactated ringers 1,000 ML 90 ML IV (15:36)
[2023-11-18] MEDS: methocarbamol 750 mg Tablet PO ×3 (15:36→21:10)
[2023-11-18 17:31] LABS: Basophils % 0.1 %; Eosinophils % 0.1 %; Hematocrit 35.1 % (37-53); Lymphocytes # 0.5 10^3/uL (0.8-4.8); Lymphocytes % 4.1 %; Mean Corpuscular HGB Conc 32.5 g/dL (30-55); Mean Corpuscular Hemoglobin 28.3 pg (27-33); Mean Corpuscular Volume 87.1 fl (82-101); Mean Platelet Volume 10.2 fL (7.4-10.4); Monocytes # 0.4 10^3/uL (0.2-0.9); Monocytes % 3.7 %; Neutrophils # 10.81 10^3/uL (1.8-7.7); Neutrophils % 91.4 %; Nucleated Red Blood Cells % 0 %; Platelet Count 206 10^3/cmm (157-399); Red Blood Count 4.03 10^6/uL (3.85-5.65); White Blood Count 11.82 10^3/uL (3.29-11.43)
[2023-11-18] MEDS: docusate sodium 100 mg Capsule PO (17:42)
[2023-11-18] MEDS: tamsulosin 0.4 mg Capsule PO (17:42)
[2023-11-18] MEDS: atorvastatin 40 mg Tablet 20 MG PO (17:42)
[2023-11-18] MEDS: ceFAZolin 3,000 MG in sodium chloride 0.9% (plus) 50 ML 100 MG IV (17:43)
[2023-11-18 18:01] LABS: Glucose Point of Care 298 mg/dL (70-110)
[2023-11-18] MEDS: insulin lispro 100 unit/1 mL SUBCUT (18:07)
[2023-11-18 21:07] LABS: Glucose Point of Care 299 mg/dL (70-110)
[2023-11-19] VITALS (8 sets, daily range): BP systolic 113–143; BP diastolic 71–77; PULSE 86–112; RESP 16–20; TEMP 36.8–37.6; O2SAT 93–95
[2023-11-19] MEDS: ceFAZolin 3,000 MG in sodium chloride 0.9% (plus) 50 ML 100 MG IV ×2 (03:39→12:19)
[2023-11-19] MEDS: dexamethasone 10 mg/mL INJ IVP ×2 (03:39→08:31)
[2023-11-19] MEDS: lactated ringers 1,000 ML 90 ML IV (03:40)
[2023-11-19] MEDS: allopurinol 300 mg Tablet PO (05:35)
[2023-11-19] MEDS: oxyCODONE-APAP 10-325 mg Tablet 1 TAB PO ×2 (05:35→09:27)
[2023-11-19 06:36] LABS: Glucose Point of Care 292 mg/dL (70-110)
[2023-11-19 07:55] LABS: Basophils % 0.2 %; Hematocrit 32.8 % (37-53); Lymphocytes # 0.6 10^3/uL (0.8-4.8); Mean Corpuscular HGB Conc 32.6 g/dL (30-55); Mean Corpuscular Hemoglobin 28.5 pg (27-33); Mean Corpuscular Volume 87.2 fl (82-101); Mean Platelet Volume 9.8 fL (7.4-10.4); Monocytes # 0.3 10^3/uL (0.2-0.9); Monocytes % 2.4 %; Neutrophils # 10.92 10^3/uL (1.8-7.7); Neutrophils % 91.7 %; Nucleated Red Blood Cells % 0 %; Platelet Count 227 10^3/cmm (157-399); Red Blood Count 3.76 10^6/uL (3.85-5.65); Red Cell Distribution Width 14.2 % (12.1-15.1)
[2023-11-19] MEDS: insulin lispro 100 unit/1 mL SUBCUT ×2 (07:55→12:18)
[2023-11-19 08:19] LABS: Blood Urea Nitrogen 20 mg/dL (8-23); Calcium 9.9 mg/dL (8.5-10.5); Carbon Dioxide 23 mmol/L (22-29); Chloride 98 mmol/L (98-107); Glucose 275 mg/dL (65-115); Osmolality Calculated 282 mOsm/kg (285-295); Sodium 130 mmol/L (136-145)
[2023-11-19 08:21] LABS: Anion Gap 13.8 (5-19); Potassium 4.8 mmol/L (3.5-5.1)
[2023-11-19] MEDS: methocarbamol 750 mg Tablet PO ×2 (09:26→13:56)
[2023-11-19] MEDS: docusate sodium 100 mg Capsule PO (09:26)
[2023-11-19] MEDS: duloxetine 60 mg Capsule PO (09:26)
[2023-11-19] MEDS: gabapentin 300 mg Capsule 900 MG PO (09:27)
[2023-11-19] MEDS: lisinopril 10 mg Tablet 5 MG PO (09:27)
--- NOTE | 2023-11-19 10:07 | PC.NURSE ---
0944 removed gant catheter, 10ml ns pulled out from bulb of catheter. pt handled procedure well. 400ml urine
--- NOTE | 2023-11-19 10:54 | PM.DCS ---
Discharge Providers Date of Admission: 11/17/23 16:42 Date of Discharge: November 19, 2023 Attending Provider at Admission: Juan Miguel Cunningham DO Attending Provider at Discharge: Juan Miguel Cunningham DO Primary Care Provider: Ara Rubio MD Diagnoses at Discharge Discharge Diagnosis (1) Benign essential HTN: Status: Acute (2) Type 2 diabetes mellitus: Status: Acute (3) Low back pain: Status: Acute Qualifiers: Back pain laterality: midline Chronicity: acute Sciatica laterality: bilateral sciatica Sciatica presence: with sciatica Qualified Code(s): M54.42 - Lumbago with sciatica, left side; M54.41 - Lumbago with sciatica, right side (4) Hematoma: Status: Acute (5) Lumbar radiculopathy: Status: Acute (6) Neuropathy: Status: Chronic (7) Status post laminectomy: Status: Acute Reason for Visit Reason for Visit: spine surgery 2 days ago, lower back pain Physical Exam Narrative: Pain significantly improved today. Patient would like to be discharged home. Urinary Catheter Management: Ortiz: Cath Placed During This Visit: yes Reason for Continuing Indwelling Catheter: Other Urinary Catheter Date of Insertion: 11/17/23 Urinary Catheter Time of Insertion: 17:44 Discharge Data Studies Completed and Pending Completed Studies During Hospitalization Category Date Time Status MR lumbar spine wo con* [id number] Stat MRI 11/17/23 14:28 Completed Pending at discharge Category Date Time Status C-arm Fluoroscopy [id number] Routine Exams 11/18/23 10:42 Taken Laboratory Results WBC 11.90 10^3/uL (3.29-11.43) H 11/19/23 07:37 RBC 3.76 10^6/uL (3.85-5.65) L 11/19/23 07:37 Hgb 10.70 g/dL (11.27-16.99) L 11/19/23 07:37 Hct 32.8 % (37-53) L 11/19/23 07:37 MCV 87.2 fl (82-101) 11/19/23 07:37 MCH 28.5 pg (27-33) 11/19/23 07:37 MCHC 32.6 g/dL (30-55) 11/19/23 07:37 RDW 14.2 % (12.1-15.1) 11/19/23 07:37 Plt Count 227 10^3/cmm (157-399) 11/19/23 07:37 MPV 9.8 fL (7.4-10.4) 11/19/23 07:37 Neut % (Auto) 91.7 % 11/19/23 07:37 Lymph % (Auto) 5.0 % 11/19/23 07:37 Webb % (Auto) 2.4 % 11/19/23 07:37 Eos % (Auto) 0.0 % 11/19/23 07:37 Baso % (Auto) 0.2 % 11/19/23 07:37 Neut # (Auto) 10.92 10^3/uL (1.8-7.7) H 11/19/23 07:37 Lymph # (Auto) 0.6 10^3/uL (0.8-4.8) L 11/19/23 07:37 Webb # (Auto) 0.3 10^3/uL (0.2-0.9) 11/19/23 07:37 Eos # (Auto) 0.0 10^3/uL (0.0-0.8) 11/19/23 07:37 Baso # (Auto) 0.0 10^3/uL (0.0-0.1) 11/19/23 07:37 Nucleated RBC % (auto) 0 % 11/19/23 07:37 Nucleated RBCs # 0.0 /100WBC 11/19/23 07:37 Sodium 130 mmol/L (136-145) L 11/19/23 07:37 Potassium 4.8 mmol/L (3.5-5.1) 11/19/23 07:37 Chloride 98 mmol/L (98-107) 11/19/23 07:37 Carbon Dioxide 23 mmol/L (22-29) 11/19/23 07:37 Anion Gap 13.8 (5-19) 11/19/23 07:37 BUN 20 mg/dL (8-23) 11/19/23 07:37 Creatinine 0.7 mg/dL (0.7-1.2) 11/19/23 07:37 GFR Calculation Not Reportable 11/19/23 07:37 Glucose 275 mg/dL (65-115) H 11/19/23 07:37 POC Glucose 292 mg/dL (70-110) H 11/19/23 06:23 Calculated Osmolality 282 mOsm/kg (285-295) L 11/19/23 07:37 Calcium 9.9 mg/dL (8.5-10.5) 11/19/23 07:37 Vitals Last Vital Signs Temp 99.0 F 11/19/23 07:37 Pulse 96 11/19/23 07:37 Resp 20 H 11/19/23 09:27 BP 113/71 11/19/23 07:37 Pulse Ox 95 11/19/23 09:27 O2 Del Method Room Air 11/19/23 07:37 Discharge Plan Discharge Patient Disposition: Home Condition: Stable Prescriptions: New hydrocodone-acetaminophen 10-325 mg tablet 1 tab PO Q4H PRN (Reason: pain) 7 Days Qty: 40 0RF Continued allopurinol 300 mg tablet 300 mg PO QAM metformin 1,000 mg tablet 1,000 mg PO BID tamsulosin 0.4 mg capsule 0.4 mg PO QPM pravastatin 40 mg tablet 40 mg PO QPM glipizide 10 mg tablet 20 mg PO BID gabapentin 300 mg capsule 900 mg PO TID 30 Days Qty: 270 1RF lisinopril 10 mg tablet 5 mg PO DAILY methocarbamol 750 mg tablet 750 mg PO QID meclizine 25 mg tablet 25 mg PO TID PRN (Reason: Nausea) pioglitazone 30 mg tablet 30 mg PO DAILY duloxetine 60 mg capsule,delayed release(DR/EC) 60 mg PO DAILY cholecalciferol (vitamin D3) 50 mcg (2,000 unit) capsule 50 mcg PO DAILY aspirin 325 mg tablet 325 mg PO DAILY hydrocodone-acetaminophen 10-325 mg tablet 1 - 2 tab PO Q4H PRN (Reason: pain) 7 Days Qty: 40 0RF Referrals: Ara Rubio MD [Primary Care Provider] - Discharge Diet: Advance as tolerated Discharge Activity: Limit activity as instructed Patient Instructions: Opioid Safety Activity Restrictions/Additional Instructions: Thank you for [facility] for your care! The following is a list of instructions, from your provider, to follow upon your discharge to ensure you have the optimal recovery from your recent injury orsurgery. Follow-up care is a mcallister part of your treatment and safety. Be sure to make and go to all appointments, and call your doctor if you are having problems. If you do not already have a follow-up appointment made, call Dr. Cunningham office in the next 1-3 days to make follow up appointment for 2 weeks at [phone]. It is also a good idea to know your test results and keep a list of the medicines you take. Medications will be prescribed for you at your provider's discretion. These medications are to be used as instructed; if they are taken more often that prescribed they will not be refilled early and in most cases will not be refilled at all. > When a refill is needed,you should contact axel vega 2-3 business days before your prescription runs out. Medications will NOT be refilled by provider relations representative providers after hours! > Many pain medications contain Tylenol (Acetaminophen). Do not consume more than 4,000 mg of Tylenol per day in total with any combination ofmedications. > Pain medications can cause constipation. Please use an over the counter stool softener as directed, while taking pain medications. Consulty our local pharmacist with questions or recommendations on stool softeners. If constipation persists, contact our office or your primary care provider. > While under our care,you are not to receive pain medications or other controlled substances from any other provider unless our office is notified and approves. Any attempts to do so will result in refusal to prescribe any further pain medications and possible dismissal from our practice. ? Your wound and/or dressing should remain clean and dry for 2 days after surgery. On postoperative day 2 (48 hours after your surgery) the dressing (if present) should be removed and it is okay to shower and get the incision wet. Pad dry afterwards. No further dressing should be required from that point on. Do not put any creams or ointments on theincision > It is normal for there to be a small amount of discharge (bloody or blood tinged) present from a surgical wound for the first 1-3days. > The wound should be examined twice a day for signs of infection. Mild redness or bruising is to be expected but indications that an infection maybe starting would include; An increase in redness, swelling, or discharge, a foul odor present around the incision, and/or a fever greater than 101 ?F ? Showering is permitted, however we ask that you do not take a bath, sit in a whirlpool / Jacuzzi, or go swimming for 1 month. For only the first 2 days after surgery, lt wilt be necessary for you to cover your wound/dressing with plastic and tape to keep it dry. ? Walking is essential for the healing process after surgery. We would like you to slowly advance your walking. This should be done on relatively flat clear ground (inside or out) or can be done on a treadmill. Remember this goal does not have to happen all at once, slowly increase your distance and duration. This can be broken into more more than one walk per day as tolerated. Patients who walk as directed after surgery rarely require Physical Therapy. In the unlikely event this issue arises your provider will direct hospital staff to make the appropriate arrangements. ? No lifting over 5 pounds {a gallon of milk) or bending/twisting until further notice. Each of these activities places an unnecessary amount of stress onto the body and can impede the delicate healing process. > Instead of bending at the waist, keep your back straight and bend at the knees. > Instead of twisting your torso, keep your back straight and turn your entire body with your feet. ? You may sleep in any position which makes you comfortable. Many patients find comfort sleeping in a reclining chair. It is not abnormal to have difficulty sleeping for the first several weeks following your surgery. We recommend trying Benadry! or Tylenol PM as directed to help with your sleeping difficulties. Both medications are over the counter and available withoutprescription. ? NO SMOKING!!! Smoking dramatically increases the probability of developing postoperative wound infections. ? Common complaints after lumbar and/or thoracic spine surgery include, but are not limited to: numbness and/or tingling in the legs, pain around the incision and surrounding tissues, muscle spasms, or stiffness of the middle to low back. Contact our office if these symptoms persist or if an acute change occurs. ? No driving for the first 3-5days, and not while taking narcotics until seen at your follow-up appointment and cleared. There are no restrictions for riding on short trips, however if you take a longer trip, arrangements should be made to make regular stops to get out of the vehicle and stretch . ? Swelling is an unfortunate event that will take place with any surgery and is the primary source of your postoperative discomfort. While walking and regular approved activities helps control inflammation, there are additional steps you can take to minimizeswelling. > Place ice over the surgical site and surrounding tissue for twenty minutes, followed by applying a low/medium heat (heating pad) for an additional twenty minutes every 1-2 hours as needed for painrelief. > You may use of over the counter anti-inflammatory medications (Ibuprofen, Motrin, Aleve, Advil, etc) as directed on the package label. These types of medicines wm significantly reduce the amount of discomfort you experience after surgery from swelling. It should be noted that if you have and allergy to any of these medications, or a history of ulcers or kidney disease you should consult you primary care provider prior to starting these medications. Discharge Attestations Time Spent in Discharge Care*: less than 30 min Quality Metrics Clinical Quality Measures [ No reported AMI, CVA or VTE this stay] Coding Level of Care Code Acute Code for Chg Fwd Diagnoses Benign essential HTN I10 Type 2 diabetes mellitus with hyperglycemia, without long-term current use of insulin E11.9 Low back pain M54.42; M54.41 Back pain laterality: midline Chronicity: acute Sciatica laterality: bilateral sciatica Sciatica presence: with sciatica Hematoma T14.8XXA Lumbar radiculopathy M54.16 Neuropathy G62.9 Status post laminectomy Z98.890
--- NOTE | 2023-11-19 11:54 | PC.NURSE ---
@1100 [employer] AND THIS [employer]ING WHE[employer]ESSER PULLED HEMOVAC DRAIN. PLACED DRESSING TO SITE. PT HANDLED PROCEDURE WELL.
[2023-11-19 12:11] LABS: Glucose Point of Care 295 mg/dL (70-110)
--- NOTE | 2023-11-19 14:47 | PC.NURSE ---
@1437 written disharge instruction discussed and left with patient. pt waiting on family to leave.
== END 2023-11-19 16:15 | disposition home or self-care (01) | DRG 909 ==
LOC: ER 18:23 → MEDSURG 18:30
PROVIDERS: Internal Medicine; Admitting Provider Orthopaedic Surgery; Emergency Provider Emergency Medicine; PCP Family Medicine; Visit Provider Orthopaedic Surgery
PROC: 01NB0ZZ Release Lumbar Nerve, Open Approach (ICD-10-PCS; CPT 63001; principal; 2023-11-18 11:00)
DX: M96.840 Postprocedural hematoma of a musculoskeletal structure following a musculoskeletal system procedure (principal); Y83.8 Other surgical procedures as the cause of abnormal reaction of the patient, or of later complication, without mention of misadventure at the time of the procedure; Y79.8 Miscellaneous orthopedic devices associated with adverse incidents, not elsewhere classified; M48.062 Spinal stenosis, lumbar region with neurogenic claudication; M54.16 Radiculopathy, lumbar region; G62.9 Polyneuropathy, unspecified; E89.2 Postprocedural hypoparathyroidism; I10 Essential (primary) hypertension; E11.9 Type 2 diabetes mellitus without complications; M54.41 Lumbago with sciatica, right side; Z79.82 Long term (current) use of aspirin; Z79.84 Long term (current) use of oral hypoglycemic drugs; Z86.16 Personal history of COVID-19; Z87.891 Personal history of nicotine dependence; Z98.890 Other specified postprocedural states
CPT/HCPCS: 36415; 36416; 51702; 72100; 72148; 76000; 80048; 82962; 85025; 96372; 96374; 96375; 96376; 97116; 97161; 99285; J0690; J1100; J1170; J1815; J2405; J2704; J2710; J3010; J3370; J3490; J7030; J7120

== ENCOUNTER → 2023-11-30 14:43 | Outpatient (BNVA) | payer OTHER, SELFPAY | PROVIDERS: PCP Family Medicine; Visit Provider Orthopaedic Surgery | DX: Z47.89 Encounter for other orthopedic aftercare (principal) | CPT/HCPCS: 72100; 99024 ==

== ENCOUNTER → 2023-12-29 10:30 | Outpatient (BNVA) | payer OTHER, SELFPAY | PROVIDERS: PCP Family Medicine; Visit Provider Orthopaedic Surgery | DX: Z98.890 Other specified postprocedural states (principal) | CPT/HCPCS: 99024 ==

== ENCOUNTER → 2024-02-08 10:32 | Outpatient (BNVA) | payer OTHER, SELFPAY | PROVIDERS: PCP Family Medicine; Visit Provider Orthopaedic Surgery | DX: Z98.890 Other specified postprocedural states (principal) | CPT/HCPCS: 99024 ==

== ENCOUNTER → 2024-02-09 07:38 | Outpatient (BNVA) | payer OTHER, SELFPAY | PROVIDERS: PCP Family Medicine; Visit Provider Specialist | DX: M19.012 Primary osteoarthritis, left shoulder (principal) | CPT/HCPCS: 20610; J1100; J2795; J3301 ==

== ENCOUNTER → 2024-03-07 15:27 | Outpatient (BNVA) | payer OTHER, SELFPAY | PROVIDERS: PCP Family Medicine; Visit Provider Orthopaedic Surgery | DX: Z98.890 Other specified postprocedural states (principal) | CPT/HCPCS: 99214 ==

== ENCOUNTER 2024-04-03 09:06 | Outpatient (CLI) | payer OTHER, SELFPAY ==
--- NOTE | 2024-04-03 09:30 | MR_ITS ---
WS: [id number] MRI LUMBAR SPINE NONCONTRAST TECHNIQUE: Sagittal T1, T2 and STIR imaging. Axial T1 and T2 imaging. CLINICAL INFORMATION: back pain COMPARISON: MRI 11/17/2023 FINDINGS: Mild lumbar curve. No acute compression. Slight anterolisthesis L5 on S1. Slight retrolisthesis L1 on L2 and L2 on L3. Laminectomy defects L3-L4 L4-L5 and L5-S1. Postoperative changes are new compared t o previous. L1-L2: Minimal annular bulging. Mild facet arthropathy. Spinal canal and foramen are patent. L2-L3: Mild annular bulging. Mild facet arthropathy. Spinal canal and foramen are patent. L3-L4: RIGHT paracentral disc extrusion with slight cephalad migration of disc material. This appears new compared to previous. Impingement on the RIGHT subarticular recess and traversing right-sided ne rve roots. Moderate narrowing of the thecal sac with impingement the RIGHT subarticular recess. Moder ate facet arthropathy. Bilateral foraminal protrusions with moderate to severe LEFT and mild RIGHT fo raminal narrowing. Impingement exiting LEFT L3 nerve root. Laminectomy defects. Disc extrusion measur es 7 mm in AP dimension. L4-L5: Laminectomy defects. RIGHT foraminal protrusion impinges the exiting L4 nerve root with modera te to severe RIGHT foraminal narrowing. Impingement LEFT far exiting L4 nerve root. This appears dustin lar to previous. L5-S1: Slight anterolisthesis L5 on S1. Moderate facet arthropathy. Laminectomy defects. Spinal canal is patent. Mild RIGHT greater than LEFT foraminal narrowing. Visualized pelvic bony structures: Normal. Paravertebral soft tissues: Normal. Partially visualized LEFT renal cyst measuring 5.3 cm. MR/MR lumbar spine wo con* [id number] IMPRESSION: 1. Mild lumbar curve. No acute compression. 2. Laminectomy defects L3-L5 are new compared to previous. 3. RIGHT pericentral disc extrusion is new compared to previous with impingeme nt on the RIGHT subarticular recess and traversing RIGHT L4 nerve root. Slight cephalad migration of disc material posterior to the L3 vertebral body. Moderat e narrowing of the thecal sac at this level. Decompressive laminectomy defects. 4. Moderate to severe LEFT L3-4 foraminal narrowing with impingement on the ex iting LEFT L3 nerve root appears similar to previous. 5. Moderate to severe RIGHT L4-5 foraminal narrowing with a RIGHT foraminal pr otrusion impinges the exiting RIGHT L4 nerve root similar to previous. 6. Stable grade 1 anterolisthesis L5 on S1 with mild bilateral foraminal narro wing.
== END 2024-04-03 09:07 | disposition home or self-care (01) ==
LOC: RAD 09:06
PROVIDERS: PCP Family Medicine; Visit Provider Orthopaedic Surgery
DX: M51.26 Other intervertebral disc displacement, lumbar region (principal); M48.07 Spinal stenosis, lumbosacral region; M54.42 Lumbago with sciatica, left side; M54.41 Lumbago with sciatica, right side
CPT/HCPCS: 72148

== ENCOUNTER → 2024-04-09 13:52 | Outpatient (BNVA) | payer OTHER, SELFPAY | PROVIDERS: PCP Family Medicine; Visit Provider Orthopaedic Surgery | DX: M54.42 Lumbago with sciatica, left side (principal); M54.41 Lumbago with sciatica, right side; Z09 Encounter for follow-up examination after completed treatment for conditions other than malignant neoplasm | CPT/HCPCS: 36415; 80053; 81001; 85025; 99214 ==

== ENCOUNTER → 2024-04-26 10:16 | Outpatient (BNVA) | payer OTHER, SELFPAY | PROVIDERS: PCP Family Medicine; Visit Provider Family Medicine | DX: Z01.818 Encounter for other preprocedural examination (principal) | CPT/HCPCS: 81003; 93005 ==

== ENCOUNTER → 2024-05-09 08:28 | Outpatient (BNVA) | payer OTHER, SELFPAY | PROVIDERS: PCP Family Medicine; Visit Provider Orthopaedic Surgery | DX: Z98.890 Other specified postprocedural states (principal) | CPT/HCPCS: 99024 ==

== ENCOUNTER → 2024-05-17 07:51 | Outpatient (BNVA) | payer OTHER, SELFPAY | PROVIDERS: PCP Family Medicine; Visit Provider Specialist | DX: M19.012 Primary osteoarthritis, left shoulder (principal); Z71.89 Other specified counseling | CPT/HCPCS: 99214 ==

== ENCOUNTER → 2024-06-06 08:24 | Outpatient (BNVA) | payer OTHER, SELFPAY | PROVIDERS: PCP Family Medicine; Visit Provider Orthopaedic Surgery | DX: Z98.890 Other specified postprocedural states (principal) | CPT/HCPCS: 99024 ==

== ENCOUNTER → 2024-07-18 08:55 | Outpatient (BNVA) | payer OTHER, SELFPAY | PROVIDERS: PCP Family Medicine; Visit Provider Orthopaedic Surgery | DX: Z98.890 Other specified postprocedural states (principal) | CPT/HCPCS: 99024 ==

== ENCOUNTER → 2024-08-15 10:05 | Outpatient (BNVA) | payer OTHER, SELFPAY | PROVIDERS: PCP Family Medicine; Visit Provider Orthopaedic Surgery | DX: Z98.890 Other specified postprocedural states (principal) | CPT/HCPCS: 99024 ==

== ENCOUNTER → 2024-08-23 09:28 | Outpatient (BNVA) | payer OTHER, SELFPAY | PROVIDERS: PCP Family Medicine; Visit Provider Specialist | DX: M19.012 Primary osteoarthritis, left shoulder (principal); Z71.89 Other specified counseling | CPT/HCPCS: 20610; J1100; J2795; J3301 ==

== ENCOUNTER 2024-11-15 09:28 | Outpatient (CLI) | payer OTHER, SELFPAY ==
[2024-11-15 10:06] LABS: Basophils % 0.6 %; Eosinophils # 0.3 10^3/uL (0.0-0.8); Eosinophils % 4.6 %; Lymphocytes # 2.3 10^3/uL (0.8-4.8); Lymphocytes % 35.9 %; Mean Corpuscular HGB Conc 29.2 g/dL (30-55); Mean Corpuscular Hemoglobin 25.4 pg (27-33); Mean Corpuscular Volume 87.1 fl (82-101); Mean Platelet Volume 9.7 fL (7.4-10.4); Monocytes # 0.3 10^3/uL (0.2-0.9); Monocytes % 4.4 %; Neutrophils # 3.41 10^3/uL (1.8-7.7); Neutrophils % 54.2 %; Nucleated Red Blood Cells % 0 %; Platelet Count 240 10^3/cmm (157-399); Red Blood Count 4.25 10^6/uL (3.85-5.65); Red Cell Distribution Width 16.1 % (12.1-15.1)
[2024-11-15 10:29] LABS: Calcium 10.7 mg/dL (8.5-10.5)
[2024-11-15 10:30] LABS: Albumin Level 4.2 g/dL (3.5-5.2); Anion Gap 14.3 (5-19); Blood Urea Nitrogen 21 mg/dL (8-23); Calcium 10.6 mg/dL (8.5-10.5); Carbon Dioxide 24 mmol/L (22-29); Chloride 104 mmol/L (98-107); Glucose 79 mg/dL (65-115); Phosphorus 3.3 mg/dL (2.5-4.5); Potassium 4.3 mmol/L (3.5-5.1); Sodium 138 mmol/L (136-145); Uric Acid 5.1 mg/dL (3.4-7.0)
[2024-11-15 10:34] LABS: Parathyroid Hormone 37.4 pg/mL (15-65)
[2024-11-15 10:35] LABS: Creatinine Urine, Random 178 mg/dL (39-259); Microalbum Creatinine Ratio Ur 6 mg/dL (0-20); Microalbumin Random Urine 1 ug/dL (0-20)
[2024-11-15 10:44] LABS: 25 Hydroxy Vitamin D 32 ng/mL (30-100)
== END 2024-11-15 09:29 | disposition home or self-care (01) ==
PROVIDERS: PCP Family Medicine; Visit Provider Internal Medicine Nephrology
DX: E55.9 Vitamin D deficiency, unspecified (principal); N18.2 Chronic kidney disease, stage 2 (mild); M10.00 Idiopathic gout, unspecified site
CPT/HCPCS: 36415; 80069; 82044; 82306; 82310; 83970; 84550; 85025

== ENCOUNTER 2024-11-26 08:36 | Outpatient (CLI) | payer OTHER, SELFPAY ==
[2024-11-26 09:29] LABS: Basophils % 0.5 %; Eosinophils # 0.2 10^3/uL (0.0-0.8); Eosinophils % 3.2 %; Hematocrit 32.8 % (37-53); Lymphocytes # 2.5 10^3/uL (0.8-4.8); Lymphocytes % 41.7 %; Mean Corpuscular HGB Conc 30.2 g/dL (30-55); Mean Corpuscular Hemoglobin 25.6 pg (27-33); Mean Platelet Volume 9.6 fL (7.4-10.4); Monocytes # 0.3 10^3/uL (0.2-0.9); Monocytes % 4.9 %; Neutrophils # 2.91 10^3/uL (1.8-7.7); Neutrophils % 49.5 %; Nucleated Red Blood Cells % 0 %; Platelet Count 237 10^3/cmm (157-399); Red Blood Count 3.86 10^6/uL (3.85-5.65); Red Cell Distribution Width 15.9 % (12.1-15.1); White Blood Count 5.88 10^3/uL (3.29-11.43)
[2024-11-26 10:02] LABS: Calcium 10.2 mg/dL (8.5-10.5)
[2024-11-26 10:09] LABS: Parathyroid Hormone 48.6 pg/mL (15-65)
[2024-11-26 10:13] LABS: Creatinine Urine, Random 107 mg/dL (39-259); Microalbum Creatinine Ratio Ur 9 mg/dL (0-20); Microalbumin Random Urine 1 ug/dL (0-20)
[2024-11-26 10:20] LABS: Anion Gap 13.3 (5-19); Blood Urea Nitrogen 11 mg/dL (8-23); Calcium 10.3 mg/dL (8.5-10.5); Carbon Dioxide 27 mmol/L (22-29); Chloride 101 mmol/L (98-107); Glucose 64 mg/dL (65-115); Phosphorus 3.5 mg/dL (2.5-4.5); Potassium 4.3 mmol/L (3.5-5.1); Sodium 137 mmol/L (136-145); Uric Acid 4.4 mg/dL (3.4-7.0)
[2024-11-26 10:36] LABS: 25 Hydroxy Vitamin D 27 ng/mL (30-100)
== END 2024-11-26 08:37 | disposition home or self-care (01) ==
LOC: LAB 08:59
PROVIDERS: PCP Family Medicine; Visit Provider Internal Medicine Nephrology
DX: E55.9 Vitamin D deficiency, unspecified (principal); N18.2 Chronic kidney disease, stage 2 (mild); M10.00 Idiopathic gout, unspecified site
CPT/HCPCS: 36415; 80069; 82044; 82306; 82310; 83970; 84550; 85025

== ENCOUNTER → 2024-11-29 09:20 | Outpatient (BNVA) | payer OTHER, SELFPAY | PROVIDERS: PCP Family Medicine; Visit Provider Specialist | DX: M19.012 Primary osteoarthritis, left shoulder (principal); Z71.89 Other specified counseling | CPT/HCPCS: 20610; J1100; J2795; J3301 ==

== ENCOUNTER → 2025-02-28 10:30 | Outpatient (BNVA) | payer OTHER, SELFPAY | PROVIDERS: PCP Family Medicine; Visit Provider Specialist | DX: M19.012 Primary osteoarthritis, left shoulder (principal) | CPT/HCPCS: 20610; J1100; J2795; J3301; J9999 ==

== ENCOUNTER → 2025-04-14 12:48 | Outpatient (BNVA) | payer OTHER, SELFPAY | PROVIDERS: PCP Family Medicine; Visit Provider Specialist | DX: M19.011 Primary osteoarthritis, right shoulder (principal) | CPT/HCPCS: 20610; 73030; 99214; J1100; J2795; J3301; J9999 ==

== ENCOUNTER → 2025-06-13 09:08 | Outpatient (BNVA) | payer OTHER, SELFPAY | PROVIDERS: PCP Family Medicine; Visit Provider Specialist | DX: M19.012 Primary osteoarthritis, left shoulder (principal); M25.511 Pain in right shoulder | CPT/HCPCS: 20610; J1100; J2795; J3301; J9999 ==

== ENCOUNTER → 2025-09-19 09:54 | Outpatient (BNVA) | payer OTHER, SELFPAY | PROVIDERS: PCP Family Medicine; Visit Provider Specialist | DX: M19.011 Primary osteoarthritis, right shoulder (principal); M19.012 Primary osteoarthritis, left shoulder | CPT/HCPCS: 20610; J1100; J2795; J3301; J9999 ==